=== PATIENT | male | born 1970 | race Caucasian/White ===

== ENCOUNTER 2018-03-22 11:11 | Inpatient (IN) | payer OTHER ==
[~2018-03-22] VITALS: Ht 188 cm; Wt 161.4 kg
[2018-03-22 12:27] LABS: BASOPHILS # (AUTO) 0.01 x10^3/uL (0-0.1); BASOPHILS % (AUTO) 0 % (0-1); EOSINOPHILS # (AUTO) 0.05 x10^3/uL (0-0.4); EOSINOPHILS % (AUTO) 1 % (1-7); LYMPHOCYTES # (AUTO) 1.06 x10^3/uL (1-3.4); LYMPHOCYTES % (AUTO) 13 % (22-44); MD NO; MEAN CORPUSCULAR HGB CONC 31.9 g/dL (33.2-36.2); MEAN CORPUSCULAR VOLUME 90.7 fL (81-97); MEAN PLATELET VOLUME 9.5 fL (7.4-10.4); MONOCYTES # (AUTO) 0.69 x10^3/uL (0.2-0.8); MONOCYTES % (AUTO) 9 % (2-9); NEUTROPHILS # (AUTO) 6.12 x10^3/uL (1.8-6.8); NEUTROPHILS % (AUTO) 77 % (42-75); PLATELET COUNT 210 x10^3/uL (130-400); RED BLOOD COUNT 4.28 x10^6/uL (4.38-5.82); RED CELL DISTRIBUTION WIDTH 17.1 % (9.4-14.8)
[2018-03-22 12:35] LABS: INTERNATIONAL NORMALIZED RATIO 1.03 (0.93-1.1); PROTHROMBIN TIME 10.9 Seconds (9.6-11.5)
[2018-03-22 12:37] LABS: ALBUMIN 3.6 g/dL (3.4-5.0); ANION GAP 7 mmol/L (5-15); CALCIUM 8.3 mg/dL (8.5-10.1); CHLORIDE 98 mmol/L (98-107); CREATININE 1.13 mg/dL (0.7-1.3)
[2018-03-22] MEDS ORDERED: SODIUM CHLORIDE FLUSH 10ML SYR IVF PRN (13:30)
[2018-03-22 14:09] VITALS: BP 172/101
[2018-03-22] MEDS ORDERED: PROMETHAZINE 25 MG/ML, 1ML IM PRN (14:30)
[2018-03-22] MEDS ORDERED: DOCUSATE 100 MG CAPSULE PO PRN (14:30)
[2018-03-22] MEDS ORDERED: ONDANSETRON ODT 4 MG PO PRN (14:30)
[2018-03-22] MEDS ORDERED: ACETAMINOPHEN 325 MG TABLET PO PRN (14:30)
[2018-03-22] MEDS ORDERED: OXYcodone IR 5MG TABLET PO PRN (14:30)
[2018-03-22] MEDS ORDERED: FUROSEMIDE 20 MG/2 ML IV ONE (14:30)
[2018-03-22] MEDS ORDERED: hydrALAzine 20 MG/ML, 1ML IVPush PRN (14:30)
[2018-03-22] MEDS ORDERED: ONDANSETRON 2MG/ML, 2ML IVPush PRN (14:30)
[2018-03-22] MEDS ORDERED: POLYETHYLENE GLYCOL 17 GM PACKET PO PRN (14:30)
[2018-03-22] MEDS ORDERED: LABETALOL 5MG/ML, 20ML IVPush PRN (14:30)
[2018-03-22] MEDS ORDERED: GABAPENTIN 300 MG CAPSULE PO PRN (14:30)
[2018-03-22] MEDS ORDERED: BISACODYL 10 MG SUPP PR PRN (14:30)
[2018-03-22] MEDS ORDERED: morphine SULFATE 10 MG/ML, 1ML IVPush PRN (14:30)
[2018-03-22 14:46] LABS: FREE T4 (FREE THYROXINE) 0.99 ng/dL (0.76-1.46); THYROID STIMULATING HORMONE 1.65 mIU/L (0.358-3.740)
[2018-03-22 14:56] VITALS: BP 178/104
[2018-03-22] MEDS: METOPROLOL SUCCINATE 25 MG TAB.ER.24H PO SCH (15:00)
[2018-03-22 15:29] LABS: HEMOGLOBIN A1C 6.7 % (4.2-6.3)
[2018-03-22 15:53] VITALS: BP 108/77
[2018-03-22 16:13] LABS: TROPONIN I 0.061 ng/mL (0.000-0.045)
[2018-03-22] MEDS ORDERED: CHOL2000 PO (16:38)
[2018-03-22] MEDS ORDERED: VERA180C2 PO (16:38)
[2018-03-22] MEDS ORDERED: SOTA160T PO (16:38)
[2018-03-22] MEDS ORDERED: PANT40TA5 PO (16:38)
[2018-03-22] MEDS ORDERED: DULO30CA2 PO (16:38)
[2018-03-22] MEDS ORDERED: DIGO250T12 PO (16:38)
[2018-03-22] MEDS ORDERED: FURO-92 PO (16:38)
[2018-03-22 18:43] LABS: TROPONIN I 0.046 ng/mL (0.000-0.045)
[2018-03-22 19:44] VITALS: BP 146/83
[2018-03-22] MEDS ORDERED: MAGNESIUM SULFATE PMX 2GM/50ML 50 ML IV ONE (20:00)
[2018-03-23 01:57] VITALS: BP 163/75
[2018-03-23 04:58] LABS: ALBUMIN 3.3 g/dL (3.4-5.0); ANION GAP 7 mmol/L (5-15); CALCIUM 7.9 mg/dL (8.5-10.1); CHLORIDE 98 mmol/L (98-107); CREATININE 1.01 mg/dL (0.7-1.3)
[2018-03-23 05:00] LABS: MEAN CORPUSCULAR HEMOGLOBIN 28.6 pg (27.5-34.5); MEAN CORPUSCULAR HGB CONC 30.8 g/dL (33.2-36.2); MEAN CORPUSCULAR VOLUME 92.8 fL (81-97); MEAN PLATELET VOLUME 9.7 fL (7.4-10.4); PLATELET COUNT 183 x10^3/uL (130-400); RED BLOOD COUNT 4.45 x10^6/uL (4.38-5.82); RED CELL DISTRIBUTION WIDTH 17.2 % (9.4-14.8)
[2018-03-23 05:04] LABS: ALANINE AMINOTRANSFERASE 35 U/L (12-78); ALKALINE PHOSPHATASE 95 U/L (45-117); BILIRUBIN,TOTAL 0.8 mg/dL (0.2-1.0); CHOL/HDL RATIO 4.3; CHOLESTEROL, TOTAL 153 mg/dL (140-239); HDL CHOL % 24 % (26-37); HDL CHOLESTEROL (DIRECT) 36 mg/dL (40-60); LDL CHOLESTEROL,CALCULATED 81 mg/dL (54-169); LDL/HDL RATIO 2.3 (0.5-3.0); TOTAL PROTEIN 6.9 g/dL (6.4-8.2); TRIGLYCERIDES 182 mg/dL (50-200); VLDL CHOLESTEROL 36 mg/dL (0-25)
[2018-03-23 05:46] LABS: BASOPHILS # (AUTO) 0.06 x10^3/uL (0-0.1); BASOPHILS % (AUTO) 1 % (0-1); EOSINOPHILS # (AUTO) 0.08 x10^3/uL (0-0.4); EOSINOPHILS % (AUTO) 1 % (1-7); LYMPHOCYTES # (AUTO) 0.95 x10^3/uL (1-3.4); LYMPHOCYTES % (AUTO) 13 % (22-44); MD SCAN; MONOCYTES # (AUTO) 0.67 x10^3/uL (0.2-0.8); MONOCYTES % (AUTO) 9 % (2-9); NEUTROPHILS # (AUTO) 5.87 x10^3/uL (1.8-6.8); NEUTROPHILS % (AUTO) 77 % (42-75)
[2018-03-23] MEDS: METOPROLOL SUCCINATE 25 MG TAB.ER.24H PO SCH (06:32)
[2018-03-23] MEDS: ASPIRIN 81 MG TABLET EC PO SCH (06:32)
[2018-03-23 06:42] VITALS: BP 133/85
[2018-03-23] MEDS ORDERED: METOPROLOL 1 MG/ML, 5ML ONE (06:47)
[2018-03-23] MEDS ORDERED: METOPROLOL 1 MG/ML, 5ML IVPush ONE (07:00)
[2018-03-23] MEDS ORDERED: IPRATROPIUM 0.5 MG/2.5 ML INHA ONE (07:54)
[2018-03-23] MEDS: IPRATROPIUM 0.5 MG/2.5 ML INHA NPPB SCH ×3 (08:33→19:20)
[2018-03-23] MEDS: VERAPAMIL ER 180MG TABLET.ER PO SCH ×2 (08:59→21:21)
[2018-03-23] MEDS ORDERED: FUROSEMIDE 40 MG/4 ML IV ONE (09:00)
[2018-03-23] MEDS: DULOXETINE 30 MG CAPSULE.DR PO SCH (09:05)
[2018-03-23] MEDS: PANTOPROZOLE 40MG TABLET PO SCH (09:05)
[2018-03-23] MEDS: CHOLECALCIFEROL 1,000 UNIT TABLET PO SCH (09:05)
[2018-03-23] MEDS: DIGOXIN 0.25 MG TABLET PO SCH (09:06)
[2018-03-23] MEDS: FUROSEMIDE 40 MG TABLET PO SCH (09:06)
[2018-03-23] MEDS: SOTALOL 80MG TABLET PO SCH ×2 (09:07→21:21)
[2018-03-23 13:08] VITALS: BP 158/72
[2018-03-23 19:44] VITALS: BP 153/76
[2018-03-24 02:00] VITALS: BP 137/71
[2018-03-24 04:59] LABS: BASOPHILS # (AUTO) 0.02 x10^3/uL (0-0.1); BASOPHILS % (AUTO) 0 % (0-1); EOSINOPHILS # (AUTO) 0.05 x10^3/uL (0-0.4); EOSINOPHILS % (AUTO) 1 % (1-7); LYMPHOCYTES # (AUTO) 1.09 x10^3/uL (1-3.4); LYMPHOCYTES % (AUTO) 15 % (22-44); MD NO; MEAN CORPUSCULAR HEMOGLOBIN 28.7 pg (27.5-34.5); MEAN CORPUSCULAR HGB CONC 31.2 g/dL (33.2-36.2); MEAN CORPUSCULAR VOLUME 92.1 fL (81-97); MEAN PLATELET VOLUME 9.5 fL (7.4-10.4); MONOCYTES % (AUTO) 8 % (2-9); NEUTROPHILS # (AUTO) 5.52 x10^3/uL (1.8-6.8); NEUTROPHILS % (AUTO) 76 % (42-75); PLATELET COUNT 184 x10^3/uL (130-400); RED BLOOD COUNT 4.13 x10^6/uL (4.38-5.82); RED CELL DISTRIBUTION WIDTH 16.8 % (9.4-14.8)
[2018-03-24 05:11] LABS: ANION GAP 2 mmol/L (5-15); CALCIUM 8.3 mg/dL (8.5-10.1); CHLORIDE 98 mmol/L (98-107); CREATININE 0.93 mg/dL (0.7-1.3)
[2018-03-24] MEDS: ASPIRIN 81 MG TABLET EC PO SCH (05:50)
[2018-03-24] MEDS: IPRATROPIUM 0.5 MG/2.5 ML INHA NPPB SCH ×4 (07:00→21:00)
[2018-03-24 07:15] VITALS: BP 134/75
[2018-03-24 09:34] VITALS: BP 162/76
[2018-03-24] MEDS: SOTALOL 80MG TABLET PO SCH ×2 (09:35→19:52)
[2018-03-24] MEDS: DIGOXIN 0.25 MG TABLET PO SCH (09:35)
[2018-03-24] MEDS: DULOXETINE 30 MG CAPSULE.DR PO SCH (09:35)
[2018-03-24] MEDS: CHOLECALCIFEROL 1,000 UNIT TABLET PO SCH (09:36)
[2018-03-24] MEDS: VERAPAMIL ER 180MG TABLET.ER PO SCH ×2 (09:36→19:52)
[2018-03-24] MEDS: PANTOPROZOLE 40MG TABLET PO SCH (09:36)
[2018-03-24] MEDS: FUROSEMIDE 40 MG TABLET PO SCH (09:36)
[2018-03-24] MEDS ORDERED: FUROSEMIDE 40 MG/4 ML IV ONE (10:00)
[2018-03-24 10:35] VITALS: BP 135/77
[2018-03-24] MEDS: POTASSIUM CHLORIDE 20 MEQ TAB.ER.PRT PO SCH (10:36)
[2018-03-24 10:39] LABS: O2 FLOW 5 L/min
[2018-03-24] MEDS: methylPREDNISolone SOD SUCC 125 MG/2 ML IVPush SCH ×2 (11:34→17:40)
[2018-03-24 12:43] VITALS: BP 145/90
[2018-03-24 19:27] VITALS: BP 163/73
[2018-03-25 00:26] VITALS: BP 148/81
[2018-03-25] MEDS: methylPREDNISolone SOD SUCC 125 MG/2 ML IVPush SCH ×5 (00:35→23:47)
[2018-03-25] MEDS: IPRATROPIUM 0.5 MG/2.5 ML INHA NPPB SCH ×4 (03:00→19:07)
[2018-03-25] MEDS: ASPIRIN 81 MG TABLET EC PO SCH (06:26)
[2018-03-25 08:58] VITALS: BP 127/69
[2018-03-25 09:11] LABS: ANION GAP 7 mmol/L (5-15); CALCIUM 9.3 mg/dL (8.5-10.1); CHLORIDE 101 mmol/L (98-107)
[2018-03-25] MEDS: VERAPAMIL ER 180MG TABLET.ER PO SCH ×2 (10:01→20:56)
[2018-03-25] MEDS: POTASSIUM CHLORIDE 20 MEQ TAB.ER.PRT PO SCH (10:01)
[2018-03-25] MEDS: DIGOXIN 0.25 MG TABLET PO SCH (10:01)
[2018-03-25] MEDS: SOTALOL 80MG TABLET PO SCH ×2 (10:02→20:56)
[2018-03-25] MEDS: CHOLECALCIFEROL 1,000 UNIT TABLET PO SCH (10:02)
[2018-03-25] MEDS: PANTOPROZOLE 40MG TABLET PO SCH (10:02)
[2018-03-25] MEDS: DULOXETINE 30 MG CAPSULE.DR PO SCH (10:02)
[2018-03-25] MEDS: FUROSEMIDE 40 MG TABLET PO SCH (10:02)
[2018-03-25 15:58] VITALS: BP 126/68
[2018-03-25 20:03] VITALS: BP 134/70
[2018-03-26 00:59] VITALS: BP 145/76
[2018-03-26] MEDS: IPRATROPIUM 0.5 MG/2.5 ML INHA NPPB SCH ×4 (02:28→20:27)
[2018-03-26] MEDS: methylPREDNISolone SOD SUCC 125 MG/2 ML IVPush SCH ×3 (06:14→18:38)
[2018-03-26] MEDS: ASPIRIN 81 MG TABLET EC PO SCH (06:14)
[2018-03-26 07:16] VITALS: BP 146/72
[2018-03-26] MEDS: POTASSIUM CHLORIDE 20 MEQ TAB.ER.PRT PO SCH (07:47)
[2018-03-26] MEDS: SOTALOL 80MG TABLET PO SCH ×2 (07:47→21:04)
[2018-03-26] MEDS: DULOXETINE 30 MG CAPSULE.DR PO SCH (07:47)
[2018-03-26] MEDS: DIGOXIN 0.25 MG TABLET PO SCH (07:48)
[2018-03-26] MEDS: FUROSEMIDE 40 MG TABLET PO SCH (07:48)
[2018-03-26] MEDS: PANTOPROZOLE 40MG TABLET PO SCH (07:48)
[2018-03-26] MEDS: CHOLECALCIFEROL 1,000 UNIT TABLET PO SCH (07:48)
[2018-03-26] MEDS: VERAPAMIL ER 180MG TABLET.ER PO SCH ×2 (07:48→21:04)
[2018-03-26 08:43] LABS: ANION GAP 10 mmol/L (5-15); CALCIUM 8.8 mg/dL (8.5-10.1); CHLORIDE 104 mmol/L (98-107)
[2018-03-26 12:58] VITALS: BP 128/63
[2018-03-26 19:05] VITALS: BP 154/70
[2018-03-27 02:10] VITALS: BP 145/81
[2018-03-27] MEDS: methylPREDNISolone SOD SUCC 125 MG/2 ML IVPush SCH ×3 (02:11→13:11)
[2018-03-27 02:31] VITALS: BP 144/80
[2018-03-27] MEDS: IPRATROPIUM 0.5 MG/2.5 ML INHA NPPB SCH ×3 (03:00→14:30)
[2018-03-27] MEDS: ASPIRIN 81 MG TABLET EC PO SCH (06:14)
[2018-03-27 06:16] LABS: ANION GAP 10 mmol/L (5-15); CALCIUM 8.8 mg/dL (8.5-10.1); CHLORIDE 105 mmol/L (98-107)
[2018-03-27 06:18] LABS: CREATININE 1.21 mg/dL (0.7-1.3)
[2018-03-27 07:05] VITALS: BP 139/67
[2018-03-27] MEDS: DIGOXIN 0.25 MG TABLET PO SCH (08:04)
[2018-03-27] MEDS: DULOXETINE 30 MG CAPSULE.DR PO SCH (08:05)
[2018-03-27] MEDS: CHOLECALCIFEROL 1,000 UNIT TABLET PO SCH (08:05)
[2018-03-27] MEDS: POTASSIUM CHLORIDE 20 MEQ TAB.ER.PRT PO SCH (08:05)
[2018-03-27] MEDS: VERAPAMIL ER 180MG TABLET.ER PO SCH (08:05)
[2018-03-27] MEDS: PANTOPROZOLE 40MG TABLET PO SCH (08:05)
[2018-03-27] MEDS: FUROSEMIDE 40 MG TABLET PO SCH (08:06)
[2018-03-27] MEDS: SOTALOL 80MG TABLET PO SCH (08:06)
[2018-03-27] MEDS ORDERED: ASPI325T17 PO (11:34)
[2018-03-27] MEDS ORDERED: TIOT18CA INH (11:34)
[2018-03-27] MEDS ORDERED: PRED5TAB PO (11:34)
[2018-03-27 13:30] VITALS: BP 127/67
[2018-03-28] MEDS ORDERED: ASPIRIN 325 MG TABLET EC PO SCH (06:00)
== END 2018-03-27 15:13 | disposition home or self-care (01) | DRG 280 ==
LOC: ED 12:41 → EDIP 14:04 → 5SO 14:08 → 4WST 03-27 02:28
PROVIDERS: ADMIT Hospitalist; ATTEND Hospitalist
PROC: 5A09357 Assistance with Respiratory Ventilation, Less than 24 Consecutive Hours, Continuous Positive Airway Pressure (ICD-10-PCS; 2018-03-25)
PROC: 5A09357 Assistance with Respiratory Ventilation, Less than 24 Consecutive Hours, Continuous Positive Airway Pressure (ICD-10-PCS; principal; 2018-03-26)
DX: I21.9 Acute myocardial infarction, unspecified (principal); J96.21 Acute and chronic respiratory failure with hypoxia; J44.1 Chronic obstructive pulmonary disease with (acute) exacerbation; I50.30 Unspecified diastolic (congestive) heart failure; E87.4 Mixed disorder of acid-base balance; E46 Unspecified protein-calorie malnutrition; D68.69 Other thrombophilia; Z68.42 Body mass index [BMI] 45.0-49.9, adult; Z77.098 Contact with and (suspected) exposure to other hazardous, chiefly nonmedicinal, chemicals; I48.0 Paroxysmal atrial fibrillation; I11.0 Hypertensive heart disease with heart failure; I34.0 Nonrheumatic mitral (valve) insufficiency; E66.01 Morbid (severe) obesity due to excess calories; I48.2 Chronic atrial fibrillation; D64.9 Anemia, unspecified; Z88.8 Allergy status to other drugs, medicaments and biological substances; Z99.81 Dependence on supplemental oxygen; Z79.82 Long term (current) use of aspirin; Z87.891 Personal history of nicotine dependence
CPT/HCPCS: 36415; 36600; 99285; J7644; 71045; 80048; 80053; 80061; 82040; 82803; 83036; 83735; 84439; 84443; 84484; 85025; 85610; 85730; 93005; 93306; 94640; 94660; G0378; J1940; J2930; J3475; J7512

== ENCOUNTER 2018-04-25 10:44 | Inpatient (IN) | payer OTHER ==
[~2018-04-25] VITALS: Ht 188 cm; Wt 148.0 kg
[~2018-04-25 10:44] MED LIST: ASPI325T17 PO; CHOL2000 PO; DIGO250T12 PO; DULO30CA2 PO; FURO-92 PO; PANT40TA5 PO; PRED5TAB PO; SOTA160T PO; TIOT18CA INH; VERA180C2 PO
--- NOTE | 2018-04-25 11:15 | NUR ---
BIB [facility] from [facility]. C/O left sided 2/10 CP radiating to left arm. C/O right inguinal pain, redness, and swelling, very tender on palpation. Patient mildly hypotensive and very diaphoretic. On 4L NC, which is his baseline. Guards at bedside. Placed on NIBP, pulse ox and youth nutritional monitor. Will continue to monitor.
[2018-04-25] MEDS ORDERED: UMEC62.5 INH (11:24)
[2018-04-25] MEDS ORDERED: SODIUM CHLORIDE FLUSH 10ML SYR IVF ONE (11:30)
[2018-04-25] MEDS ORDERED: ONDANSETRON 2MG/ML, 2ML IVPush ONE (11:30)
[2018-04-25] MEDS ORDERED: SODIUM CHLORIDE 0.9% 1,000ML IVBOLUS ONE ×2 (11:30→14:00)
[2018-04-25] MEDS ORDERED: ONDANSETRON 2MG/ML, 2ML ONE (11:31)
[2018-04-25] MEDS ORDERED: HYDROmorphone 2 MG/ML, 1ML ONE ×2 (11:31→14:56)
[2018-04-25] MEDS: HYDROmorphone 1 MG/ML, 1ML IVPush PRN ×2 (11:35→14:57)
[2018-04-25] MEDS ORDERED: VANCOMYCIN PER PHARMACY MC ONE (12:00)
[2018-04-25] MEDS ORDERED: PIPERACILLIN/TAZO/PMX 3.375GM 50 ML IVPB ONE (12:00)
[2018-04-25] MEDS ORDERED: VANCOMYCIN 2,200 MG in SODIUM CHLORIDE 0.9% 500 ML IV ONE (12:00)
[2018-04-25 12:08] LABS: INTERNATIONAL NORMALIZED RATIO 1.23 (0.93-1.1); PROTHROMBIN TIME 12.9 Seconds (9.6-11.5)
[2018-04-25 12:09] LABS: ALBUMIN 2.4 g/dL (3.4-5.0); ANION GAP 11 mmol/L (5-15); CHLORIDE 91 mmol/L (98-107)
[2018-04-25] MEDS ORDERED: PIPERACILLIN/TAZO/PMX 3.375GM 50 ML ONE (12:13)
[2018-04-25 12:15] LABS: ALANINE AMINOTRANSFERASE 23 U/L (12-78); ALKALINE PHOSPHATASE 94 U/L (45-117); CREATININE 1.13 mg/dL (0.7-1.3); TOTAL PROTEIN 6.5 g/dL (6.4-8.2)
[2018-04-25] MEDS ORDERED: NS + 40MEQ KCL 1,000 ML IV ONE (12:15)
--- NOTE | 2018-04-25 12:19 | NUR ---
Noah murrell. No other needs.
[2018-04-25 12:24] LABS: MEAN CORPUSCULAR HEMOGLOBIN 30.3 pg (27.5-34.5); MEAN CORPUSCULAR HGB CONC 33.8 g/dL (33.2-36.2); MEAN CORPUSCULAR VOLUME 89.5 fL (81-97); PLATELET COUNT 145 x10^3/uL (130-400); RED BLOOD COUNT 4.29 x10^6/uL (4.38-5.82); RED CELL DISTRIBUTION WIDTH 15.3 % (9.4-14.8)
[2018-04-25 12:37] LABS: TROPONIN I < 0.015 ng/mL (0.000-0.045)
[2018-04-25 13:07] LABS: MD YES
[2018-04-25 13:08] LABS: BAND#(MANUAL) 1.36 x10^3/uL; BANDS%(MANUAL) 9 % (0-7); LYMPH#(MANUAL) 1.21 x10^3/uL (1-3.4); LYMPHS% (MANUAL) 8 % (22-44); MONOS#(MANUAL) 1.06 x10^3/uL (0.3-2.7); MONOS% (MANUAL) 7 % (2-9); SEG#(MANUAL) 11.48 x10^3/uL (1.8-6.8); SEGS% (MANUAL) 76 % (42-75)
[2018-04-25 13:09] LABS: <PLATELET ESTIMATE> ADEQUATE; POLYCHROMASIA 1+
[2018-04-25 13:10] LABS: LARGE PLATELETS 1+
[2018-04-25] MEDS ORDERED: OMNIPAQUE 350 MG/ML, 100ML BOTTLE ONE (13:23)
--- NOTE | 2018-04-25 13:24 | NUR ---
Patient becoming increasingly hypotensive, diaphoretic, and pale. Fluids run wide open. Lowered HOB. aware. Ziyad held for now.
--- NOTE | 2018-04-25 13:44 | NUR ---
REPORT FROM RN XAVIER, PT CARE ASSUMED AT THIS TIME. PT MOVED TO TR03 FOR CVL PLACEMENT. MD TRIPLETT DISCUSSED CVL PLACEMENT INCLUDING RISK & BEENFIT W/ PT WHO STATES COMPREHENSION.
--- NOTE | 2018-04-25 13:44 | NUR ---
Report to KELSEA Benjamin.
[2018-04-25] MEDS ORDERED: NOREPINEPHRINE 4 MG in SODIUM CHLORIDE 0.9% 246 ML IV PRN ×2 (14:00→15:00)
--- NOTE | 2018-04-25 14:30 | NUR ---
CVL PLACED W/O COMPLICATION, ADHERING TO HOSPITAL PROTOCOL & STERILE TECHNIQUE. MD TAYLOR HAS BEEN AT BEDSIDE TO REVIEW H&P W/ PT, PT IS SCHEDULED FOR SURGICAL CLEANOUT OF GROIN INFECTION.
[2018-04-25] MEDS ORDERED: CLINDAMYCIN PMX 900MG/50ML 0 ML ONE (14:40)
[2018-04-25] MEDS ORDERED: POLYETHYLENE GLYCOL 17 GM PACKET PO PRN (15:00)
[2018-04-25] MEDS ORDERED: VASOPRESSIN 100 UNIT in SODIUM CHLORIDE 0.9% 495 ML IV PRN (15:00)
[2018-04-25] MEDS ORDERED: BISACODYL 10 MG SUPP PR PRN (15:00)
[2018-04-25] MEDS ORDERED: VANCOMYCIN PER PHARMACY MC PRN (15:00)
[2018-04-25] MEDS ORDERED: ONDANSETRON 2MG/ML, 2ML IVPush PRN (15:00)
[2018-04-25] MEDS ORDERED: DOCUSATE 100 MG CAPSULE PO PRN (15:00)
[2018-04-25] MEDS ORDERED: MAGNESIUM SULFATE PMX 2GM/50ML 50 ML IV ONE (15:00)
[2018-04-25] MEDS ORDERED: CLINDAMYCIN PMX 900MG/50ML 50 ML IV ONE (15:00)
[2018-04-25] MEDS ORDERED: MAGNESIUM SULFATE 3 GM in SODIUM CHLORIDE 0.9% 100 ML IV ONE (15:30)
[2018-04-25] MEDS ORDERED: LIDOCAINE 2%,20 ML JEL.PF.APP MM ONE (15:33)
--- NOTE | 2018-04-25 15:36 | NUR ---
REPORT CALLED JOVON TORRE IN CCU, MOBLEY CATH PLACED BY MD TAYLOR
[2018-04-25 15:39] LABS: HCT (SEDRATE) 38.4 % (39.2-51.8)
--- NOTE | 2018-04-25 16:02 | NUR ---
REPORT GIVEN TO YELITZA ENAMORADO PRIOR TO TRANSPORT TO FLOOR, PT TRANSPORTED W/ ALL BELONGINGS & IN ACCOMPANIED BY GUARDS.
[2018-04-25] MEDS ORDERED: POTASSIUM PHOSPHATE 44 MEQ in SODIUM CHLORIDE 0.9% 500 ML IV ONE (17:00)
[2018-04-25] MEDS ORDERED: MAGNESIUM SULFATE PMX 4GM/100M 100 ML IV ONE (17:00)
[2018-04-25] MEDS ORDERED: PHARMACOKINETIC CONSULTATION MC ONE (17:00)
[2018-04-25] MEDS ORDERED: PHARMACOKINETIC MONITORING MC PRN (17:00)
[2018-04-25] MEDS ORDERED: POTASSIUM CHLORIDE 40 MEQ in SODIUM CHLORIDE 0.9% 100 ML IV ONE (17:30)
[2018-04-25] MEDS: MEROPENEM 1 GM in SODIUM CHLORIDE 0.9% 100 ML IV SCH (17:56)
[2018-04-25 18:51] LABS: CULTURE INDICATED? ORDERED BY PHYSICIAN; MICROSCOPIC INDICATED
[2018-04-25 18:58] LABS: AMPHETAMINE SCREEN, URINE Negative (Negative); BARBITURATE SCREEN, URINE Negative (Negative); BENZODIAZEPINE SCREEN, URINE Negative (Negative); CANNABINOID SCREEN, URINE Negative (Negative); COCAINE SCREEN, URINE Negative (Negative); METHADONE SCREEN, URINE Negative (Negative); OPIATE SCREEN, URINE Positive (Negative)
[2018-04-25] MEDS: CLINDAMYCIN PMX 900MG/50ML 50 ML IV SCH (19:17)
[2018-04-25] MEDS: FENTANYL PF 100 MCG/2ML IVPush PRN ×2 (20:09→23:03)
[2018-04-25] MEDS: SODIUM CHLORIDE 0.9% 1,000 ML IV SCH (20:10)
[2018-04-25] MEDS ORDERED: FONDAPARINUX 2.5 MG/0.5 ML SQ SCH (21:00)
[2018-04-26] MEDS: MEROPENEM 1 GM in SODIUM CHLORIDE 0.9% 100 ML IV SCH ×3 (01:58→16:57)
[2018-04-26] MEDS: FENTANYL PF 100 MCG/2ML IVPush PRN ×10 (02:02→22:00)
[2018-04-26] MEDS: CLINDAMYCIN PMX 900MG/50ML 50 ML IV SCH ×3 (03:01→19:19)
[2018-04-26 03:36] LABS: MEAN CORPUSCULAR HEMOGLOBIN 29.9 pg (27.5-34.5); MEAN CORPUSCULAR HGB CONC 33.1 g/dL (33.2-36.2); MEAN CORPUSCULAR VOLUME 90.4 fL (81-97); MEAN PLATELET VOLUME 10.6 fL (7.4-10.4); PLATELET COUNT 134 x10^3/uL (130-400); RED BLOOD COUNT 3.55 x10^6/uL (4.38-5.82); RED CELL DISTRIBUTION WIDTH 15.6 % (9.4-14.8)
[2018-04-26 03:50] LABS: ALANINE AMINOTRANSFERASE 18 U/L (12-78); ALBUMIN 1.8 g/dL (3.4-5.0); ANION GAP 8 mmol/L (5-15); CALCIUM 6.6 mg/dL (8.5-10.1); CHLORIDE 101 mmol/L (98-107); CREATININE 0.85 mg/dL (0.7-1.3)
[2018-04-26 03:52] LABS: ALKALINE PHOSPHATASE 84 U/L (45-117); BILIRUBIN,TOTAL 0.8 mg/dL (0.2-1.0); TOTAL PROTEIN 5.3 g/dL (6.4-8.2)
[2018-04-26 04:00] LABS: HEMOGLOBIN A1C 6.2 % (4.2-6.3)
[2018-04-26] MEDS: SODIUM CHLORIDE 0.9% 1,000 ML IV SCH ×3 (04:05→22:00)
[2018-04-26 04:09] VITALS: BP 121/60
[2018-04-26 04:23] LABS: BASOPHILS # (AUTO) 0.01 x10^3/uL (0-0.1); BASOPHILS % (AUTO) 0 % (0-1); EOSINOPHILS # (AUTO) 0.04 x10^3/uL (0-0.4); EOSINOPHILS % (AUTO) 0 % (1-7); LYMPHOCYTES # (AUTO) 0.51 x10^3/uL (1-3.4); LYMPHOCYTES % (AUTO) 5 % (22-44); MD SCAN; MONOCYTES % (AUTO) 7 % (2-9); NEUTROPHILS # (AUTO) 10.01 x10^3/uL (1.8-6.8); NEUTROPHILS % (AUTO) 88 % (42-75)
[2018-04-26] MEDS: PANTOPRAZOLE 40 MG IV IVPush SCH (07:26)
[2018-04-26] MEDS: VANCOMYCIN 2,200 MG in SODIUM CHLORIDE 0.9% 500 ML IV SCH (07:27)
[2018-04-26] MEDS ORDERED: POTASSIUM CHLORIDE 20 MEQ TAB.ER.PRT PO SCH (08:00)
[2018-04-26] MEDS ORDERED: MAGNESIUM SULFATE PMX 4GM/100M 100 ML IV ONE (08:00)
[2018-04-26] MEDS ORDERED: POTASSIUM CHLORIDE 40 MEQ in SODIUM CHLORIDE 0.9% 100 ML IV ONE (09:00)
[2018-04-26] MEDS ORDERED: FENTANYL PF 100 MCG/2ML ONE ×3 (13:39→15:22)
[2018-04-26] MEDS ORDERED: SUCCINYLCHOLINE 20 MG/ML, 10ML ONE (14:01)
[2018-04-26] MEDS ORDERED: DEXAMETHASONE 4 MG/ML, 1ML ONE (14:01)
[2018-04-26] MEDS ORDERED: ROCURONIUM 10MG/ML,5ML ONE (14:01)
[2018-04-26] MEDS ORDERED: ONDANSETRON 2MG/ML, 2ML ONE (14:01)
[2018-04-26] MEDS ORDERED: PROPOFOL 10 MG/ML, 20ML ONE (14:01)
[2018-04-26] MEDS ORDERED: OXYcodone 5 MG/5 ML ORAL.SOL UDC PO PRN (15:00)
[2018-04-26] MEDS ORDERED: hydrALAzine 20 MG/ML, 1ML IV PRN (15:00)
[2018-04-26] MEDS ORDERED: METOPROLOL 1 MG/ML, 5ML IV PRN (15:00)
[2018-04-26] MEDS ORDERED: DIPHENHYDRAMINE 50 MG/ML, 1ML IVPush PRN (15:00)
[2018-04-26] MEDS ORDERED: LABETALOL 5MG/ML, 20ML IV PRN (15:00)
[2018-04-26] MEDS ORDERED: ALBUTEROL/IPRATROPIUM 2.5MG/0.5MG, 3 ML NPPB PRN (15:00)
[2018-04-26] MEDS ORDERED: PROCHLORPERAZINE 5 MG/ML, 2ML IV PRN ×2 (15:00)
[2018-04-26] MEDS ORDERED: PROMETHAZINE 25 MG/ML, 1ML IV PRN (15:00)
[2018-04-26] MEDS ORDERED: OXYcodone 5 MG/5 ML ORAL.SOL UDC ONE (15:22)
[2018-04-26] MEDS: FENTANYL PF 100 MCG/2ML IV PRN ×2 (15:25→15:30)
[2018-04-26] MEDS: HYDROmorphone 2 MG/ML, 1ML IVPush PRN ×4 (15:28→15:50)
[2018-04-26] MEDS ORDERED: HYDROmorphone 2 MG/ML, 1ML ONE (15:29)
[2018-04-26] MEDS ORDERED: FONDAPARINUX 2.5 MG/0.5 ML SQ SCH (21:00)
[2018-04-26] MEDS: ENOXAPARIN 40 MG/0.4 ML SQ SCH ×2 (21:00→21:58)
[2018-04-27] MEDS: FENTANYL PF 100 MCG/2ML IVPush PRN ×5 (00:43→21:26)
[2018-04-27] MEDS: MEROPENEM 1 GM in SODIUM CHLORIDE 0.9% 100 ML IV SCH ×3 (00:44→17:40)
[2018-04-27] MEDS: VANCOMYCIN 2,200 MG in SODIUM CHLORIDE 0.9% 500 ML IV SCH ×3 (01:49→21:45)
[2018-04-27 04:00] VITALS: BP 109/63
[2018-04-27] MEDS: CLINDAMYCIN PMX 900MG/50ML 50 ML IV SCH ×3 (04:37→20:31)
[2018-04-27 06:30] LABS: BASOPHILS % (AUTO) 0 % (0-1); EOSINOPHILS % (AUTO) 0 % (1-7); LYMPHOCYTES % (AUTO) 3 % (22-44); MD NO; MEAN CORPUSCULAR HEMOGLOBIN 29.6 pg (27.5-34.5); MEAN CORPUSCULAR HGB CONC 32.1 g/dL (33.2-36.2); MEAN CORPUSCULAR VOLUME 92.1 fL (81-97); MEAN PLATELET VOLUME 11.6 fL (7.4-10.4); MONOCYTES # (AUTO) 0.54 x10^3/uL (0.2-0.8); MONOCYTES % (AUTO) 6 % (2-9); NEUTROPHILS # (AUTO) 8.94 x10^3/uL (1.8-6.8); NEUTROPHILS % (AUTO) 91 % (42-75); PLATELET COUNT 134 x10^3/uL (130-400); RED BLOOD COUNT 3.31 x10^6/uL (4.38-5.82); RED CELL DISTRIBUTION WIDTH 15.8 % (9.4-14.8)
[2018-04-27] MEDS: PANTOPRAZOLE 40 MG IV IVPush SCH (08:49)
[2018-04-27] MEDS: LACTOBACILLUS CHEW TABLET PO SCH ×3 (08:49→20:30)
[2018-04-27] MEDS: SODIUM CHLORIDE 0.9% 1,000 ML IV SCH ×2 (11:22→13:50)
[2018-04-27] MEDS: NYSTATIN CRM 15GM TP SCH ×3 (11:27→21:45)
[2018-04-27 19:50] VITALS: BP 136/78
[2018-04-27] MEDS: ENOXAPARIN 40 MG/0.4 ML SQ SCH (20:31)
[2018-04-27] MEDS: ACETAMINOPHEN 325 MG TABLET PO PRN (21:26)
[2018-04-27] MEDS: OXYcodone/APAP 5/325MG TABLET PO PRN (21:26)
[2018-04-27 23:04] LABS: CLOSTRIDIUM DIFFICILE ANTIGEN NEGATIVE; CLOSTRIDIUM DIFFICILE TOXIN NEGATIVE (Negative)
[2018-04-28] MEDS: SODIUM CHLORIDE 0.9% 1,000 ML IV SCH ×4 (00:24→22:24)
[2018-04-28] MEDS: MEROPENEM 1 GM in SODIUM CHLORIDE 0.9% 100 ML IV SCH ×3 (01:47→19:44)
[2018-04-28] MEDS: ACETAMINOPHEN 325 MG TABLET PO PRN ×2 (01:57→22:20)
[2018-04-28] MEDS: OXYcodone/APAP 5/325MG TABLET PO PRN ×4 (01:57→22:20)
[2018-04-28 02:05] VITALS: BP 133/77
[2018-04-28] MEDS: CLINDAMYCIN PMX 900MG/50ML 50 ML IV SCH ×3 (04:37→20:45)
[2018-04-28 05:26] LABS: BASOPHILS # (AUTO) 0.01 x10^3/uL (0-0.1); BASOPHILS % (AUTO) 0 % (0-1); EOSINOPHILS # (AUTO) 0.03 x10^3/uL (0-0.4); EOSINOPHILS % (AUTO) 0 % (1-7); LYMPHOCYTES # (AUTO) 0.58 x10^3/uL (1-3.4); LYMPHOCYTES % (AUTO) 8 % (22-44); MD NO; MEAN CORPUSCULAR HEMOGLOBIN 30.4 pg (27.5-34.5); MEAN CORPUSCULAR HGB CONC 33.3 g/dL (33.2-36.2); MEAN CORPUSCULAR VOLUME 91.1 fL (81-97); MEAN PLATELET VOLUME 10.8 fL (7.4-10.4); MONOCYTES # (AUTO) 0.54 x10^3/uL (0.2-0.8); MONOCYTES % (AUTO) 7 % (2-9); NEUTROPHILS # (AUTO) 6.14 x10^3/uL (1.8-6.8); NEUTROPHILS % (AUTO) 84 % (42-75); PLATELET COUNT 164 x10^3/uL (130-400); RED BLOOD COUNT 3.16 x10^6/uL (4.38-5.82); RED CELL DISTRIBUTION WIDTH 15.9 % (9.4-14.8)
[2018-04-28 05:41] LABS: ANION GAP 4 mmol/L (5-15); CALCIUM 7.8 mg/dL (8.5-10.1); CHLORIDE 109 mmol/L (98-107); CREATININE 0.69 mg/dL (0.7-1.3)
[2018-04-28 07:00] VITALS: BP 139/83
[2018-04-28] MEDS ORDERED: POTASSIUM CHLORIDE 60 MEQ in SODIUM CHLORIDE 0.9% 1,000 ML IV ONE (07:30)
[2018-04-28] MEDS: PANTOPRAZOLE 40 MG IV IVPush SCH (09:36)
[2018-04-28] MEDS: NYSTATIN CRM 15GM TP SCH ×3 (09:36→20:50)
[2018-04-28] MEDS: VANCOMYCIN 2,200 MG in SODIUM CHLORIDE 0.9% 500 ML IV SCH ×2 (09:36→22:18)
[2018-04-28] MEDS: LACTOBACILLUS CHEW TABLET PO SCH ×3 (09:36→20:45)
[2018-04-28 12:08] VITALS: BP 150/92
[2018-04-28 19:00] VITALS: BP 148/90
[2018-04-28] MEDS: ENOXAPARIN 40 MG/0.4 ML SQ SCH (20:45)
[2018-04-29 03:17] VITALS: BP 138/78
[2018-04-29] MEDS: MEROPENEM 1 GM in SODIUM CHLORIDE 0.9% 100 ML IV SCH ×2 (04:23→17:27)
[2018-04-29] MEDS: ACETAMINOPHEN 325 MG TABLET PO PRN ×3 (05:07→13:12)
[2018-04-29] MEDS: CLINDAMYCIN PMX 900MG/50ML 50 ML IV SCH ×2 (05:07→18:21)
[2018-04-29] MEDS: OXYcodone/APAP 5/325MG TABLET PO PRN ×4 (05:07→20:54)
[2018-04-29 06:07] LABS: MEAN CORPUSCULAR HEMOGLOBIN 29.4 pg (27.5-34.5); MEAN CORPUSCULAR HGB CONC 32.2 g/dL (33.2-36.2); MEAN CORPUSCULAR VOLUME 91.2 fL (81-97); MEAN PLATELET VOLUME 9.4 fL (7.4-10.4); PLATELET COUNT 209 x10^3/uL (130-400); RED BLOOD COUNT 3.35 x10^6/uL (4.38-5.82); RED CELL DISTRIBUTION WIDTH 16.3 % (9.4-14.8)
[2018-04-29 06:16] LABS: ALBUMIN 1.7 g/dL (3.4-5.0); ANION GAP 6 mmol/L (5-15); CALCIUM 8.3 mg/dL (8.5-10.1); CHLORIDE 107 mmol/L (98-107)
[2018-04-29 06:20] LABS: ALANINE AMINOTRANSFERASE 23 U/L (12-78); ALKALINE PHOSPHATASE 78 U/L (45-117); BILIRUBIN,TOTAL 0.3 mg/dL (0.2-1.0); TOTAL PROTEIN 5.1 g/dL (6.4-8.2)
[2018-04-29 06:39] LABS: MD YES
[2018-04-29 06:53] LABS: BAND#(MANUAL) 0.39 x10^3/uL; BANDS%(MANUAL) 6 % (0-7); LYMPH#(MANUAL) 0.91 x10^3/uL (1-3.4); LYMPHS% (MANUAL) 14 % (22-44); MONOS% (MANUAL) 3 % (2-9); SEG#(MANUAL) 5.01 x10^3/uL (1.8-6.8); SEGS% (MANUAL) 77 % (42-75)
[2018-04-29 06:54] LABS: <PLATELET ESTIMATE> ADEQUATE; <PLT MORPHOLOGY> NORMAL PLT MORPH; ANISOCYTOSIS 1+
[2018-04-29] MEDS ORDERED: POTASSIUM CHLORIDE 40 MEQ in SODIUM CHLORIDE 0.9% 500 ML IV ONE (07:00)
[2018-04-29 07:21] VITALS: BP 155/83
[2018-04-29] MEDS: VANCOMYCIN 2,200 MG in SODIUM CHLORIDE 0.9% 500 ML IV SCH ×2 (08:55→20:55)
[2018-04-29] MEDS: LACTOBACILLUS CHEW TABLET PO SCH ×3 (08:55→20:54)
[2018-04-29] MEDS: NYSTATIN CRM 15GM TP SCH ×3 (08:55→20:57)
[2018-04-29] MEDS: PANTOPRAZOLE 40 MG IV IVPush SCH (08:55)
[2018-04-29] MEDS: SODIUM CHLORIDE 0.9% 1,000 ML IV SCH (08:57)
[2018-04-29] MEDS ORDERED: MAGNESIUM SULFATE 1 GM in SODIUM CHLORIDE 0.9% 50 ML IV ONE (11:00)
[2018-04-29 13:07] VITALS: BP 163/90
[2018-04-29] MEDS ORDERED: FUROSEMIDE 40 MG TABLET ONE (13:10)
[2018-04-29] MEDS: FUROSEMIDE 40 MG TABLET PO SCH (13:11)
[2018-04-29 19:47] VITALS: BP 148/88
[2018-04-29] MEDS: ENOXAPARIN 40 MG/0.4 ML SQ SCH (20:55)
[2018-04-30 01:07] VITALS: BP 152/99
[2018-04-30] MEDS: MEROPENEM 1 GM in SODIUM CHLORIDE 0.9% 100 ML IV SCH ×3 (01:34→17:59)
[2018-04-30] MEDS: OXYcodone/APAP 5/325MG TABLET PO PRN ×4 (01:38→22:44)
[2018-04-30] MEDS: CLINDAMYCIN PMX 900MG/50ML 50 ML IV SCH ×3 (03:10→22:35)
[2018-04-30 04:50] LABS: BASOPHILS # (AUTO) 0.01 x10^3/uL (0-0.1); BASOPHILS % (AUTO) 0 % (0-1); EOSINOPHILS # (AUTO) 0.03 x10^3/uL (0-0.4); EOSINOPHILS % (AUTO) 0 % (1-7); LYMPHOCYTES # (AUTO) 0.89 x10^3/uL (1-3.4); LYMPHOCYTES % (AUTO) 12 % (22-44); MD NO; MEAN CORPUSCULAR HEMOGLOBIN 29.6 pg (27.5-34.5); MEAN CORPUSCULAR HGB CONC 32.5 g/dL (33.2-36.2); MEAN CORPUSCULAR VOLUME 91.2 fL (81-97); MEAN PLATELET VOLUME 9.1 fL (7.4-10.4); MONOCYTES # (AUTO) 0.34 x10^3/uL (0.2-0.8); MONOCYTES % (AUTO) 5 % (2-9); NEUTROPHILS # (AUTO) 5.89 x10^3/uL (1.8-6.8); NEUTROPHILS % (AUTO) 82 % (42-75); PLATELET COUNT 250 x10^3/uL (130-400); RED BLOOD COUNT 3.36 x10^6/uL (4.38-5.82); RED CELL DISTRIBUTION WIDTH 15.8 % (9.4-14.8)
[2018-04-30 05:01] LABS: ALBUMIN 1.6 g/dL (3.4-5.0); ANION GAP 6 mmol/L (5-15); CALCIUM 8.2 mg/dL (8.5-10.1); CHLORIDE 108 mmol/L (98-107)
[2018-04-30 05:10] LABS: CREATININE 0.62 mg/dL (0.7-1.3)
[2018-04-30] MEDS: ASPIRIN 325 MG TABLET PO SCH (06:06)
[2018-04-30] MEDS ORDERED: MAGNESIUM SULFATE 3 GM in SODIUM CHLORIDE 0.9% 100 ML IV ONE (07:00)
[2018-04-30 07:50] VITALS: BP 161/93
[2018-04-30] MEDS: SODIUM CHLORIDE 0.9% 1,000 ML IV SCH (07:58)
[2018-04-30] MEDS: PANTOPRAZOLE 40 MG IV IVPush SCH (07:58)
[2018-04-30] MEDS: LACTOBACILLUS CHEW TABLET PO SCH ×3 (08:39→22:34)
[2018-04-30] MEDS: POTASSIUM CHLORIDE 20 MEQ TAB.ER.PRT PO SCH ×2 (08:40→22:34)
[2018-04-30] MEDS ORDERED: FUROSEMIDE 20 MG/2 ML IV ONE (09:00)
[2018-04-30] MEDS: NYSTATIN CRM 15GM TP SCH ×3 (09:00→22:36)
[2018-04-30] MEDS: VANCOMYCIN 2,200 MG in SODIUM CHLORIDE 0.9% 500 ML IV SCH (11:33)
[2018-04-30 12:47] VITALS: BP 150/96
[2018-04-30 20:36] VITALS: BP 151/93
[2018-04-30] MEDS: ENOXAPARIN 40 MG/0.4 ML SQ SCH (22:35)
[2018-04-30] MEDS: ACETAMINOPHEN 325 MG TABLET PO PRN (22:44)
[2018-05-01] MEDS: VANCOMYCIN 2,200 MG in SODIUM CHLORIDE 0.9% 500 ML IV SCH ×2 (00:08→11:00)
[2018-05-01] MEDS: MEROPENEM 1 GM in SODIUM CHLORIDE 0.9% 100 ML IV SCH ×3 (02:01→12:30)
[2018-05-01 03:23] VITALS: BP 166/85
[2018-05-01 04:55] LABS: BASOPHILS # (AUTO) 0.01 x10^3/uL (0-0.1); BASOPHILS % (AUTO) 0 % (0-1); EOSINOPHILS # (AUTO) 0.04 x10^3/uL (0-0.4); EOSINOPHILS % (AUTO) 1 % (1-7); LYMPHOCYTES # (AUTO) 0.82 x10^3/uL (1-3.4); LYMPHOCYTES % (AUTO) 11 % (22-44); MD NO; MEAN CORPUSCULAR HEMOGLOBIN 29.8 pg (27.5-34.5); MEAN CORPUSCULAR HGB CONC 32.9 g/dL (33.2-36.2); MEAN CORPUSCULAR VOLUME 90.6 fL (81-97); MEAN PLATELET VOLUME 8.9 fL (7.4-10.4); MONOCYTES # (AUTO) 0.37 x10^3/uL (0.2-0.8); MONOCYTES % (AUTO) 5 % (2-9); NEUTROPHILS # (AUTO) 6.42 x10^3/uL (1.8-6.8); NEUTROPHILS % (AUTO) 84 % (42-75); PLATELET COUNT 264 x10^3/uL (130-400); RED CELL DISTRIBUTION WIDTH 16.2 % (9.4-14.8)
[2018-05-01 05:00] LABS: ALBUMIN 1.6 g/dL (3.4-5.0); ANION GAP 4 mmol/L (5-15); CHLORIDE 107 mmol/L (98-107)
[2018-05-01 05:04] LABS: ALANINE AMINOTRANSFERASE 25 U/L (12-78); ALKALINE PHOSPHATASE 78 U/L (45-117); BILIRUBIN,TOTAL 0.3 mg/dL (0.2-1.0); CREATININE 0.58 mg/dL (0.7-1.3); TOTAL PROTEIN 5.2 g/dL (6.4-8.2)
[2018-05-01] MEDS: PANTOPROZOLE 40MG TABLET PO SCH (06:41)
[2018-05-01] MEDS: CLINDAMYCIN PMX 900MG/50ML 50 ML IV SCH (06:41)
[2018-05-01] MEDS: ASPIRIN 325 MG TABLET PO SCH (06:41)
[2018-05-01 07:42] VITALS: BP 151/84
[2018-05-01] MEDS: POTASSIUM CHLORIDE 20 MEQ TAB.ER.PRT PO SCH ×2 (08:55→21:08)
[2018-05-01] MEDS: OXYcodone/APAP 5/325MG TABLET PO PRN ×3 (08:55→21:08)
[2018-05-01] MEDS: LACTOBACILLUS CHEW TABLET PO SCH ×3 (08:55→21:08)
[2018-05-01] MEDS: FUROSEMIDE 40 MG TABLET PO SCH (08:56)
[2018-05-01] MEDS: NYSTATIN CRM 15GM TP SCH ×2 (08:56→16:09)
[2018-05-01 12:20] VITALS: BP 143/89
[2018-05-01] MEDS: AMPICILLIN/SULBACTAM 3 GM in SODIUM CHLORIDE 0.9% 100 ML IV SCH ×2 (13:24→21:07)
[2018-05-01 19:06] VITALS: BP 146/90
[2018-05-01] MEDS: ENOXAPARIN 40 MG/0.4 ML SQ SCH (21:07)
[2018-05-01] MEDS: ACETAMINOPHEN 325 MG TABLET PO PRN (21:09)
[2018-05-02 00:35] VITALS: BP 141/82
[2018-05-02] MEDS: NYSTATIN CRM 15GM TP SCH ×4 (02:15→21:54)
[2018-05-02] MEDS: OXYcodone/APAP 5/325MG TABLET PO PRN ×2 (02:15→21:55)
[2018-05-02] MEDS: AMPICILLIN/SULBACTAM 3 GM in SODIUM CHLORIDE 0.9% 100 ML IV SCH ×4 (02:16→19:36)
[2018-05-02 04:56] LABS: HCT (SEDRATE) 31.6 % (39.2-51.8)
[2018-05-02 04:57] LABS: BASOPHILS # (AUTO) 0.01 x10^3/uL (0-0.1); BASOPHILS % (AUTO) 0 % (0-1); EOSINOPHILS # (AUTO) 0.05 x10^3/uL (0-0.4); EOSINOPHILS % (AUTO) 1 % (1-7); LYMPHOCYTES # (AUTO) 0.89 x10^3/uL (1-3.4); LYMPHOCYTES % (AUTO) 14 % (22-44); MD NO; MEAN CORPUSCULAR HEMOGLOBIN 28.9 pg (27.5-34.5); MEAN CORPUSCULAR HGB CONC 31.6 g/dL (33.2-36.2); MEAN CORPUSCULAR VOLUME 91.5 fL (81-97); MEAN PLATELET VOLUME 8.7 fL (7.4-10.4); MONOCYTES # (AUTO) 0.31 x10^3/uL (0.2-0.8); MONOCYTES % (AUTO) 5 % (2-9); NEUTROPHILS # (AUTO) 5.05 x10^3/uL (1.8-6.8); NEUTROPHILS % (AUTO) 80 % (42-75); PLATELET COUNT 281 x10^3/uL (130-400); RED BLOOD COUNT 3.47 x10^6/uL (4.38-5.82)
[2018-05-02 05:09] LABS: CHLORIDE 106 mmol/L (98-107)
[2018-05-02 05:20] LABS: ALANINE AMINOTRANSFERASE 33 U/L (12-78); ALBUMIN 1.7 g/dL (3.4-5.0); ALKALINE PHOSPHATASE 78 U/L (45-117); ANION GAP 3 mmol/L (5-15); BILIRUBIN,TOTAL 0.5 mg/dL (0.2-1.0); CALCIUM 8.2 mg/dL (8.5-10.1); CREATININE 0.61 mg/dL (0.7-1.3); TOTAL PROTEIN 5.4 g/dL (6.4-8.2)
[2018-05-02 06:40] VITALS: BP 169/83
[2018-05-02] MEDS: PANTOPROZOLE 40MG TABLET PO SCH (07:41)
[2018-05-02] MEDS: ASPIRIN 325 MG TABLET PO SCH (07:41)
[2018-05-02] MEDS: FUROSEMIDE 40 MG TABLET PO SCH (08:16)
[2018-05-02] MEDS: POTASSIUM CHLORIDE 20 MEQ TAB.ER.PRT PO SCH ×2 (08:16→21:54)
[2018-05-02] MEDS: LACTOBACILLUS CHEW TABLET PO SCH ×3 (08:16→21:54)
[2018-05-02 14:19] VITALS: BP 136/85
[2018-05-02 19:11] VITALS: BP 151/89
[2018-05-02] MEDS: ENOXAPARIN 40 MG/0.4 ML SQ SCH (21:55)
[2018-05-03 01:41] VITALS: BP 155/88
[2018-05-03] MEDS: OXYcodone/APAP 5/325MG TABLET PO PRN ×4 (02:22→15:59)
[2018-05-03] MEDS: AMPICILLIN/SULBACTAM 3 GM in SODIUM CHLORIDE 0.9% 100 ML IV SCH ×4 (02:24→21:39)
[2018-05-03] MEDS: ASPIRIN 325 MG TABLET PO SCH (06:25)
[2018-05-03] MEDS: PANTOPROZOLE 40MG TABLET PO SCH (06:25)
[2018-05-03 06:50] VITALS: BP 148/89
[2018-05-03] MEDS: POTASSIUM CHLORIDE 20 MEQ TAB.ER.PRT PO SCH ×2 (07:54→21:00)
[2018-05-03] MEDS: FUROSEMIDE 40 MG TABLET PO SCH (07:54)
[2018-05-03] MEDS: NYSTATIN CRM 15GM TP SCH ×3 (07:55→21:00)
[2018-05-03] MEDS: LACTOBACILLUS CHEW TABLET PO SCH ×3 (07:55→21:00)
[2018-05-03] MEDS: MORPHINE SULFATE 4 MG/ML, 1ML IVPush PRN ×3 (10:40→20:45)
[2018-05-03 12:36] VITALS: BP 132/74
[2018-05-03] MEDS ORDERED: FENTANYL PF 250 MCG/5ML ONE ×2 (16:51→18:41)
[2018-05-03] MEDS ORDERED: MIDAZOLAM 1 MG/ML, 2ML ONE (16:51)
[2018-05-03] MEDS ORDERED: PROPOFOL 10 MG/ML, 20ML ONE (16:52)
[2018-05-03] MEDS ORDERED: ROCURONIUM 10MG/ML,5ML ONE ×2 (16:53→17:53)
[2018-05-03] MEDS ORDERED: CEFOTETAN PMX 2GM/50ML 50 ML ONE (16:53)
[2018-05-03] MEDS ORDERED: NEOSTIGMINE 1 MG/ML, 10ML ONE (16:55)
[2018-05-03] MEDS ORDERED: GLYCOPYRROLATE 0.4 MG/2 ML, 2ML ONE (16:55)
[2018-05-03] MEDS ORDERED: SUCCINYLCHOLINE 20 MG/ML, 10ML ONE (17:18)
[2018-05-03] MEDS ORDERED: hydrALAzine 20 MG/ML, 1ML IV PRN (17:30)
[2018-05-03] MEDS ORDERED: PROMETHAZINE 12.5 MG SUPP PR PRN (17:30)
[2018-05-03] MEDS ORDERED: LABETALOL 5MG/ML, 20ML IV PRN (17:30)
[2018-05-03] MEDS ORDERED: PROMETHAZINE 25 MG/ML, 1ML IV PRN (17:30)
[2018-05-03] MEDS ORDERED: ONDANSETRON ODT 8 MG PO PRN (17:30)
[2018-05-03] MEDS ORDERED: OXYcodone 5 MG/5 ML ORAL.SOL UDC PO PRN (17:30)
[2018-05-03] MEDS ORDERED: PROMETHAZINE 25 MG SUPP PR PRN (17:30)
[2018-05-03] MEDS ORDERED: ALBUTEROL SULFATE 2.5 MG/3 ML NPPB PRN (17:30)
[2018-05-03] MEDS ORDERED: HYDROmorphone 2 MG/ML, 1ML IVPush PRN (17:30)
[2018-05-03] MEDS ORDERED: PROMETHAZINE 25 MG/ML, 1ML IM PRN ×2 (17:30)
[2018-05-03] MEDS ORDERED: ONDANSETRON 2MG/ML, 2ML IV PRN (17:30)
[2018-05-03] MEDS ORDERED: FENTANYL PF 100 MCG/2ML ONE (20:15)
[2018-05-03] MEDS ORDERED: PROMETHAZINE 25 MG/ML, 1ML ONE (20:16)
[2018-05-03] MEDS: FENTANYL PF 100 MCG/2ML IV PRN ×4 (20:17→20:35)
[2018-05-03] MEDS ORDERED: MORPHINE SULFATE 4 MG/ML, 1ML ONE (20:42)
[2018-05-03] MEDS: ENOXAPARIN 40 MG/0.4 ML SQ SCH (21:00)
[2018-05-03 21:20] VITALS: BP 147/88
[2018-05-04] MEDS: FENTANYL PF 100 MCG/2ML IVPush PRN ×8 (00:12→22:18)
[2018-05-04 00:38] VITALS: BP 139/88
[2018-05-04 03:22] VITALS: BP 134/89
[2018-05-04] MEDS: AMPICILLIN/SULBACTAM 3 GM in SODIUM CHLORIDE 0.9% 100 ML IV SCH ×4 (04:05→21:41)
[2018-05-04] MEDS: PANTOPROZOLE 40MG TABLET PO SCH (04:05)
[2018-05-04] MEDS: ASPIRIN 325 MG TABLET PO SCH (04:05)
[2018-05-04 05:33] LABS: BASOPHILS % (AUTO) 0 % (0-1); EOSINOPHILS # (AUTO) 0.01 x10^3/uL (0-0.4); EOSINOPHILS % (AUTO) 0 % (1-7); LYMPHOCYTES % (AUTO) 7 % (22-44); MD NO; MEAN CORPUSCULAR HEMOGLOBIN 29.4 pg (27.5-34.5); MEAN CORPUSCULAR HGB CONC 32.1 g/dL (33.2-36.2); MEAN CORPUSCULAR VOLUME 91.6 fL (81-97); MEAN PLATELET VOLUME 9.1 fL (7.4-10.4); MONOCYTES # (AUTO) 0.44 x10^3/uL (0.2-0.8); MONOCYTES % (AUTO) 4 % (2-9); NEUTROPHILS # (AUTO) 10.71 x10^3/uL (1.8-6.8); NEUTROPHILS % (AUTO) 90 % (42-75); PLATELET COUNT 286 x10^3/uL (130-400); RED BLOOD COUNT 3.84 x10^6/uL (4.38-5.82); RED CELL DISTRIBUTION WIDTH 15.8 % (9.4-14.8)
[2018-05-04 05:43] LABS: ALBUMIN 1.8 g/dL (3.4-5.0); ANION GAP 7 mmol/L (5-15); CALCIUM 8.5 mg/dL (8.5-10.1); CHLORIDE 101 mmol/L (98-107)
[2018-05-04 05:51] LABS: ALANINE AMINOTRANSFERASE 33 U/L (12-78); ALKALINE PHOSPHATASE 75 U/L (45-117); BILIRUBIN,TOTAL 0.4 mg/dL (0.2-1.0); CREATININE 0.67 mg/dL (0.7-1.3); TOTAL PROTEIN 5.5 g/dL (6.4-8.2)
[2018-05-04 05:54] LABS: HCT (SEDRATE) 35.2 % (39.2-51.8)
[2018-05-04 06:28] VITALS: BP 122/80
[2018-05-04] MEDS: POTASSIUM CHLORIDE 20 MEQ TAB.ER.PRT PO SCH ×2 (08:09→19:21)
[2018-05-04] MEDS: LACTOBACILLUS CHEW TABLET PO SCH ×3 (08:09→19:21)
[2018-05-04] MEDS: FUROSEMIDE 40 MG TABLET PO SCH (08:37)
[2018-05-04] MEDS: NYSTATIN CRM 15GM TP SCH ×3 (09:41→20:49)
[2018-05-04] MEDS: FUROSEMIDE 20 MG/2 ML IV SCH (09:41)
[2018-05-04 13:42] VITALS: BP 120/74
[2018-05-04 18:50] VITALS: BP 146/83
[2018-05-04] MEDS: ENOXAPARIN 40 MG/0.4 ML SQ SCH (20:49)
[2018-05-05] MEDS: FENTANYL PF 100 MCG/2ML IVPush PRN ×3 (00:32→06:46)
[2018-05-05] MEDS: ASPIRIN 325 MG TABLET PO SCH (02:21)
[2018-05-05] MEDS: PANTOPROZOLE 40MG TABLET PO SCH (02:21)
[2018-05-05] MEDS: AMPICILLIN/SULBACTAM 3 GM in SODIUM CHLORIDE 0.9% 100 ML IV SCH ×4 (03:52→21:17)
[2018-05-05 04:22] VITALS: BP 124/74
[2018-05-05 05:45] LABS: BASOPHILS # (AUTO) 0.01 x10^3/uL (0-0.1); BASOPHILS % (AUTO) 0 % (0-1); EOSINOPHILS # (AUTO) 0.07 x10^3/uL (0-0.4); EOSINOPHILS % (AUTO) 1 % (1-7); LYMPHOCYTES # (AUTO) 1.01 x10^3/uL (1-3.4); LYMPHOCYTES % (AUTO) 8 % (22-44); MD NO; MEAN CORPUSCULAR HEMOGLOBIN 30.6 pg (27.5-34.5); MEAN CORPUSCULAR HGB CONC 33.2 g/dL (33.2-36.2); MEAN CORPUSCULAR VOLUME 92.3 fL (81-97); MEAN PLATELET VOLUME 9.5 fL (7.4-10.4); MONOCYTES # (AUTO) 0.73 x10^3/uL (0.2-0.8); MONOCYTES % (AUTO) 6 % (2-9); NEUTROPHILS # (AUTO) 10.35 x10^3/uL (1.8-6.8); NEUTROPHILS % (AUTO) 85 % (42-75); PLATELET COUNT 269 x10^3/uL (130-400); RED BLOOD COUNT 3.34 x10^6/uL (4.38-5.82); RED CELL DISTRIBUTION WIDTH 15.8 % (9.4-14.8)
[2018-05-05 05:57] LABS: ANION GAP 8 mmol/L (5-15); CALCIUM 8.3 mg/dL (8.5-10.1); CHLORIDE 103 mmol/L (98-107)
[2018-05-05 05:58] LABS: CREATININE 0.58 mg/dL (0.7-1.3)
[2018-05-05 07:20] VITALS: BP 138/74
[2018-05-05] MEDS: FUROSEMIDE 20 MG/2 ML IV SCH (08:41)
[2018-05-05] MEDS: FUROSEMIDE 40 MG TABLET PO SCH (09:00)
[2018-05-05] MEDS: OXYcodone/APAP 5/325MG TABLET PO PRN ×4 (09:26→21:13)
[2018-05-05] MEDS: LACTOBACILLUS CHEW TABLET PO SCH ×3 (12:36→20:26)
[2018-05-05] MEDS: POTASSIUM CHLORIDE 20 MEQ TAB.ER.PRT PO SCH ×2 (12:37→20:26)
[2018-05-05] MEDS: NYSTATIN CRM 15GM TP SCH ×3 (12:40→21:17)
[2018-05-05 13:01] VITALS: BP 119/73
[2018-05-05 19:25] VITALS: BP 124/76
[2018-05-05] MEDS: ENOXAPARIN 40 MG/0.4 ML SQ SCH (21:13)
[2018-05-06] MEDS: OXYcodone/APAP 5/325MG TABLET PO PRN ×4 (01:13→22:08)
[2018-05-06 03:11] VITALS: BP 138/75
[2018-05-06] MEDS: AMPICILLIN/SULBACTAM 3 GM in SODIUM CHLORIDE 0.9% 100 ML IV SCH ×4 (03:14→21:30)
[2018-05-06] MEDS: ASPIRIN 325 MG TABLET PO SCH (05:01)
[2018-05-06] MEDS: PANTOPROZOLE 40MG TABLET PO SCH (05:01)
[2018-05-06 06:54] VITALS: BP 136/80
[2018-05-06] MEDS: FUROSEMIDE 40 MG TABLET PO SCH (08:10)
[2018-05-06] MEDS: LACTOBACILLUS CHEW TABLET PO SCH ×3 (09:00→21:30)
[2018-05-06] MEDS: POTASSIUM CHLORIDE 20 MEQ TAB.ER.PRT PO SCH ×2 (09:00→21:30)
[2018-05-06] MEDS: NYSTATIN CRM 15GM TP SCH ×3 (09:43→21:30)
[2018-05-06] MEDS: METOCLOPRAMIDE 5 MG/ML, 2ML IVPush SCH ×3 (10:19→21:30)
[2018-05-06] MEDS ORDERED: FENTANYL PF 100 MCG/2ML ONE ×2 (12:31→14:19)
[2018-05-06] MEDS ORDERED: MIDAZOLAM 1 MG/ML, 2ML ONE (12:31)
[2018-05-06 12:41] VITALS: BP 133/84
[2018-05-06] MEDS ORDERED: PROPOFOL 10 MG/ML, 20ML ONE (12:45)
[2018-05-06] MEDS ORDERED: ONDANSETRON 2MG/ML, 2ML ONE (12:45)
[2018-05-06] MEDS ORDERED: DEXAMETHASONE 4 MG/ML, 1ML ONE (12:45)
[2018-05-06] MEDS ORDERED: METOCLOPRAMIDE 5 MG/ML, 2ML ONE (12:45)
[2018-05-06] MEDS ORDERED: HYDROmorphone 2 MG/ML, 1ML ONE ×2 (14:19→23:43)
[2018-05-06] MEDS ORDERED: OXYcodone 5 MG/5 ML ORAL.SOL UDC ONE (14:19)
[2018-05-06] MEDS ORDERED: LABETALOL 5MG/ML, 20ML IV PRN (14:30)
[2018-05-06] MEDS ORDERED: FENTANYL PF 100 MCG/2ML IV PRN (14:30)
[2018-05-06] MEDS ORDERED: HYDROmorphone 1 MG/ML, 1ML IV PRN (14:30)
[2018-05-06] MEDS ORDERED: MEPERIDINE/PF 25MG/0.5ML IVPush PRN (14:30)
[2018-05-06] MEDS ORDERED: MIDAZOLAM 1 MG/ML, 2ML IV PRN (14:30)
[2018-05-06] MEDS ORDERED: ONDANSETRON 2MG/ML, 2ML IVPush PRN (14:30)
[2018-05-06] MEDS ORDERED: OXYcodone 5 MG/5 ML ORAL.SOL UDC PO PRN (14:30)
[2018-05-06 20:28] VITALS: BP 111/78
[2018-05-06] MEDS: ENOXAPARIN 40 MG/0.4 ML SQ SCH (21:29)
[2018-05-07] MEDS ORDERED: HYDROmorphone 2 MG/ML, 1ML IV PRN
[2018-05-07] MEDS: OXYcodone/APAP 5/325MG TABLET PO PRN ×5 (03:14→22:23)
[2018-05-07] MEDS: AMPICILLIN/SULBACTAM 3 GM in SODIUM CHLORIDE 0.9% 100 ML IV SCH ×4 (03:15→21:07)
[2018-05-07] MEDS: METOCLOPRAMIDE 5 MG/ML, 2ML IVPush SCH ×4 (03:15→21:08)
[2018-05-07 03:25] VITALS: BP 115/70
[2018-05-07] MEDS: PANTOPROZOLE 40MG TABLET PO SCH (06:27)
[2018-05-07] MEDS: ASPIRIN 325 MG TABLET PO SCH (06:27)
[2018-05-07 07:25] VITALS: BP 141/82
[2018-05-07] MEDS: FUROSEMIDE 40 MG TABLET PO SCH (08:49)
[2018-05-07] MEDS: POTASSIUM CHLORIDE 20 MEQ TAB.ER.PRT PO SCH ×2 (08:49→21:07)
[2018-05-07] MEDS: NYSTATIN CRM 15GM TP SCH ×3 (08:50→21:08)
[2018-05-07] MEDS: LACTOBACILLUS CHEW TABLET PO SCH ×3 (08:51→21:07)
[2018-05-07] MEDS: HYDROmorphone 2 MG/ML, 1ML IV PRN (13:26)
[2018-05-07 14:16] VITALS: BP 127/70
[2018-05-07 19:27] VITALS: BP 109/67
[2018-05-07] MEDS: ENOXAPARIN 40 MG/0.4 ML SQ SCH (21:08)
[2018-05-08 02:25] VITALS: BP 130/82
[2018-05-08] MEDS: OXYcodone/APAP 5/325MG TABLET PO PRN ×4 (03:28→20:16)
[2018-05-08] MEDS: AMPICILLIN/SULBACTAM 3 GM in SODIUM CHLORIDE 0.9% 100 ML IV SCH ×4 (03:29→21:51)
[2018-05-08] MEDS: METOCLOPRAMIDE 5 MG/ML, 2ML IVPush SCH ×4 (03:29→20:15)
[2018-05-08] MEDS: PANTOPROZOLE 40MG TABLET PO SCH (06:34)
[2018-05-08] MEDS: ASPIRIN 325 MG TABLET PO SCH (06:34)
[2018-05-08 07:30] VITALS: BP 129/73
[2018-05-08] MEDS: LACTOBACILLUS CHEW TABLET PO SCH ×3 (08:53→20:15)
[2018-05-08] MEDS: POTASSIUM CHLORIDE 20 MEQ TAB.ER.PRT PO SCH ×2 (08:53→20:16)
[2018-05-08] MEDS: FUROSEMIDE 40 MG TABLET PO SCH (08:54)
[2018-05-08] MEDS: NYSTATIN CRM 15GM TP SCH ×4 (08:54→21:00)
[2018-05-08 14:53] VITALS: BP 122/72
[2018-05-08 20:13] VITALS: BP 101/57
[2018-05-08] MEDS: ENOXAPARIN 40 MG/0.4 ML SQ SCH (20:16)
[2018-05-09 01:42] VITALS: BP 108/57
[2018-05-09] MEDS: OXYcodone/APAP 5/325MG TABLET PO PRN ×4 (01:58→21:32)
[2018-05-09] MEDS: AMPICILLIN/SULBACTAM 3 GM in SODIUM CHLORIDE 0.9% 100 ML IV SCH ×4 (03:46→21:38)
[2018-05-09] MEDS: METOCLOPRAMIDE 5 MG/ML, 2ML IVPush SCH ×4 (03:46→21:30)
[2018-05-09] MEDS: ASPIRIN 325 MG TABLET PO SCH (06:03)
[2018-05-09] MEDS: PANTOPROZOLE 40MG TABLET PO SCH (06:03)
[2018-05-09 07:40] VITALS: BP 120/85
[2018-05-09] MEDS: LACTOBACILLUS CHEW TABLET PO SCH ×3 (08:39→21:29)
[2018-05-09] MEDS: POTASSIUM CHLORIDE 20 MEQ TAB.ER.PRT PO SCH ×2 (08:39→21:30)
[2018-05-09] MEDS: FUROSEMIDE 40 MG TABLET PO SCH (08:40)
[2018-05-09] MEDS: NYSTATIN CRM 15GM TP SCH ×3 (08:53→21:00)
[2018-05-09] MEDS: HYDROmorphone 2 MG/ML, 1ML IV PRN (09:22)
[2018-05-09 14:59] VITALS: BP 115/75
[2018-05-09 20:07] VITALS: BP 111/76
[2018-05-09] MEDS: ENOXAPARIN 40 MG/0.4 ML SQ SCH (21:30)
[2018-05-10] MEDS: OXYcodone/APAP 5/325MG TABLET PO PRN ×5 (01:41→21:53)
[2018-05-10 01:45] VITALS: BP 98/63
[2018-05-10] MEDS: AMPICILLIN/SULBACTAM 3 GM in SODIUM CHLORIDE 0.9% 100 ML IV SCH ×4 (04:16→22:07)
[2018-05-10] MEDS: METOCLOPRAMIDE 5 MG/ML, 2ML IVPush SCH ×4 (04:16→21:54)
[2018-05-10 05:42] LABS: CREATININE 0.77 mg/dL (0.7-1.3)
[2018-05-10] MEDS: ASPIRIN 325 MG TABLET PO SCH (06:23)
[2018-05-10] MEDS: PANTOPROZOLE 40MG TABLET PO SCH (06:24)
[2018-05-10 08:24] VITALS: BP 120/79
[2018-05-10] MEDS: POTASSIUM CHLORIDE 20 MEQ TAB.ER.PRT PO SCH ×2 (08:54→21:54)
[2018-05-10] MEDS: LACTOBACILLUS CHEW TABLET PO SCH ×3 (08:54→21:54)
[2018-05-10] MEDS: FUROSEMIDE 40 MG TABLET PO SCH (08:55)
[2018-05-10] MEDS: NYSTATIN CRM 15GM TP SCH ×3 (08:55→21:54)
[2018-05-10 15:57] VITALS: BP 117/73
[2018-05-10 20:12] VITALS: BP 117/77
[2018-05-10] MEDS: ENOXAPARIN 40 MG/0.4 ML SQ SCH (21:53)
[2018-05-11 03:09] VITALS: BP 100/66
[2018-05-11] MEDS: OXYcodone/APAP 5/325MG TABLET PO PRN ×4 (03:41→22:13)
[2018-05-11] MEDS: METOCLOPRAMIDE 5 MG/ML, 2ML IVPush SCH ×4 (03:41→22:13)
[2018-05-11] MEDS: AMPICILLIN/SULBACTAM 3 GM in SODIUM CHLORIDE 0.9% 100 ML IV SCH ×4 (03:47→22:13)
[2018-05-11] MEDS: PANTOPROZOLE 40MG TABLET PO SCH (05:47)
[2018-05-11] MEDS: ASPIRIN 325 MG TABLET PO SCH (05:47)
[2018-05-11 07:17] VITALS: BP 126/78
[2018-05-11] MEDS: FUROSEMIDE 40 MG TABLET PO SCH (08:56)
[2018-05-11] MEDS: POTASSIUM CHLORIDE 20 MEQ TAB.ER.PRT PO SCH ×2 (08:57→22:13)
[2018-05-11] MEDS: LACTOBACILLUS CHEW TABLET PO SCH ×3 (08:57→22:13)
[2018-05-11] MEDS: NYSTATIN CRM 15GM TP SCH ×3 (08:58→21:00)
[2018-05-11] MEDS: HYDROmorphone 2 MG/ML, 1ML IV PRN (11:45)
[2018-05-11 13:16] VITALS: BP 116/69
[2018-05-11 20:39] VITALS: BP 119/74
[2018-05-11] MEDS: ENOXAPARIN 40 MG/0.4 ML SQ SCH (22:13)
[2018-05-12] MEDS: OXYcodone/APAP 5/325MG TABLET PO PRN ×5 (04:17→22:31)
[2018-05-12] MEDS: METOCLOPRAMIDE 5 MG/ML, 2ML IVPush SCH ×4 (04:17→21:25)
[2018-05-12] MEDS: AMPICILLIN/SULBACTAM 3 GM in SODIUM CHLORIDE 0.9% 100 ML IV SCH ×4 (04:17→21:25)
[2018-05-12 04:29] VITALS: BP 111/70
[2018-05-12] MEDS: PANTOPROZOLE 40MG TABLET PO SCH (06:00)
[2018-05-12] MEDS: ASPIRIN 325 MG TABLET PO SCH (06:00)
[2018-05-12 07:39] VITALS: BP 103/70
[2018-05-12] MEDS: FUROSEMIDE 40 MG TABLET PO SCH (09:27)
[2018-05-12] MEDS: NYSTATIN CRM 15GM TP SCH ×3 (09:27→21:00)
[2018-05-12] MEDS: LACTOBACILLUS CHEW TABLET PO SCH ×3 (09:27→21:24)
[2018-05-12] MEDS: POTASSIUM CHLORIDE 20 MEQ TAB.ER.PRT PO SCH ×2 (09:27→21:24)
[2018-05-12 14:24] VITALS: BP 94/64
[2018-05-12 19:43] VITALS: BP 122/76
[2018-05-12] MEDS: ENOXAPARIN 40 MG/0.4 ML SQ SCH (21:26)
[2018-05-13] MEDS: OXYcodone/APAP 5/325MG TABLET PO PRN ×6 (03:14→23:10)
[2018-05-13] MEDS: AMPICILLIN/SULBACTAM 3 GM in SODIUM CHLORIDE 0.9% 100 ML IV SCH ×4 (03:14→21:25)
[2018-05-13] MEDS: METOCLOPRAMIDE 5 MG/ML, 2ML IVPush SCH ×4 (03:15→21:26)
[2018-05-13 03:17] VITALS: BP 124/70
[2018-05-13 04:57] LABS: CREATININE 0.98 mg/dL (0.7-1.3)
[2018-05-13] MEDS: ASPIRIN 325 MG TABLET PO SCH (06:48)
[2018-05-13] MEDS: PANTOPROZOLE 40MG TABLET PO SCH (06:48)
[2018-05-13 07:45] VITALS: BP 104/68
[2018-05-13] MEDS: FUROSEMIDE 40 MG TABLET PO SCH (08:37)
[2018-05-13] MEDS: POTASSIUM CHLORIDE 20 MEQ TAB.ER.PRT PO SCH ×2 (08:38→21:25)
[2018-05-13] MEDS: LACTOBACILLUS CHEW TABLET PO SCH ×3 (08:38→21:25)
[2018-05-13] MEDS: NYSTATIN CRM 15GM TP SCH ×3 (10:39→21:26)
[2018-05-13] MEDS: HYDROmorphone 2 MG/ML, 1ML IV PRN (10:43)
[2018-05-13 13:39] VITALS: BP 123/76
[2018-05-13 20:42] VITALS: BP 108/72
[2018-05-13] MEDS: ENOXAPARIN 40 MG/0.4 ML SQ SCH (21:25)
[2018-05-14 01:04] VITALS: BP 110/67
[2018-05-14] MEDS: METOCLOPRAMIDE 5 MG/ML, 2ML IVPush SCH ×4 (03:15→20:52)
[2018-05-14] MEDS: OXYcodone/APAP 5/325MG TABLET PO PRN ×5 (03:15→20:52)
[2018-05-14] MEDS: AMPICILLIN/SULBACTAM 3 GM in SODIUM CHLORIDE 0.9% 100 ML IV SCH ×2 (03:15→09:42)
[2018-05-14] MEDS: ASPIRIN 325 MG TABLET PO SCH (06:03)
[2018-05-14] MEDS: PANTOPROZOLE 40MG TABLET PO SCH (06:04)
[2018-05-14 07:52] VITALS: BP 100/65
[2018-05-14] MEDS: LACTOBACILLUS CHEW TABLET PO SCH ×3 (08:06→20:51)
[2018-05-14] MEDS: POTASSIUM CHLORIDE 20 MEQ TAB.ER.PRT PO SCH ×2 (08:06→20:51)
[2018-05-14] MEDS: NYSTATIN CRM 15GM TP SCH ×3 (08:06→20:54)
[2018-05-14] MEDS: FUROSEMIDE 40 MG TABLET PO SCH (08:06)
[2018-05-14] MEDS: AMOXICILLIN/CLAV 875-125MG TABLET PO SCH ×2 (12:46→20:51)
[2018-05-14 13:26] VITALS: BP 96/61
[2018-05-14 20:04] VITALS: BP 106/71
[2018-05-14] MEDS: ENOXAPARIN 40 MG/0.4 ML SQ SCH (20:52)
[2018-05-15 01:10] VITALS: BP 108/75
[2018-05-15] MEDS: OXYcodone/APAP 5/325MG TABLET PO PRN ×5 (01:13→20:57)
[2018-05-15] MEDS: METOCLOPRAMIDE 5 MG/ML, 2ML IVPush SCH ×4 (03:57→20:58)
[2018-05-15] MEDS: AMOXICILLIN/CLAV 875-125MG TABLET PO SCH ×3 (05:07→20:57)
[2018-05-15] MEDS: PANTOPROZOLE 40MG TABLET PO SCH (05:07)
[2018-05-15] MEDS: ASPIRIN 325 MG TABLET PO SCH (05:07)
[2018-05-15 05:27] LABS: ANION GAP 5 mmol/L (5-15); CALCIUM 9.6 mg/dL (8.5-10.1); CHLORIDE 101 mmol/L (98-107); CREATININE 1.06 mg/dL (0.7-1.3)
[2018-05-15 05:32] LABS: MEAN CORPUSCULAR HEMOGLOBIN 29.7 pg (27.5-34.5); MEAN CORPUSCULAR HGB CONC 32.3 g/dL (33.2-36.2); MEAN CORPUSCULAR VOLUME 91.9 fL (81-97); MEAN PLATELET VOLUME 9.8 fL (7.4-10.4); PLATELET COUNT 384 x10^3/uL (130-400); RED BLOOD COUNT 3.07 x10^6/uL (4.38-5.82); RED CELL DISTRIBUTION WIDTH 14.9 % (9.4-14.8)
[2018-05-15 06:18] LABS: BASOPHILS # (AUTO) 0.04 x10^3/uL (0-0.1); BASOPHILS % (AUTO) 0 % (0-1); EOSINOPHILS # (AUTO) 0.31 x10^3/uL (0-0.4); EOSINOPHILS % (AUTO) 4 % (1-7); LYMPHOCYTES # (AUTO) 1.52 x10^3/uL (1-3.4); LYMPHOCYTES % (AUTO) 18 % (22-44); MD SCAN; MONOCYTES # (AUTO) 0.76 x10^3/uL (0.2-0.8); MONOCYTES % (AUTO) 9 % (2-9); NEUTROPHILS # (AUTO) 5.64 x10^3/uL (1.8-6.8); NEUTROPHILS % (AUTO) 68 % (42-75)
[2018-05-15 07:03] VITALS: BP 97/63
[2018-05-15] MEDS: LACTOBACILLUS CHEW TABLET PO SCH ×3 (09:20→20:57)
[2018-05-15] MEDS: FUROSEMIDE 40 MG TABLET PO SCH (09:20)
[2018-05-15] MEDS: NYSTATIN CRM 15GM TP SCH ×3 (09:20→20:57)
[2018-05-15] MEDS: POTASSIUM CHLORIDE 20 MEQ TAB.ER.PRT PO SCH ×2 (09:20→20:57)
[2018-05-15] MEDS: HYDROmorphone 2 MG/ML, 1ML IV PRN (10:04)
[2018-05-15 12:54] VITALS: BP 126/77
[2018-05-15 19:34] VITALS: BP 99/66
[2018-05-15] MEDS: ENOXAPARIN 40 MG/0.4 ML SQ SCH (20:58)
[2018-05-16 01:08] VITALS: BP 100/68
[2018-05-16] MEDS: METOCLOPRAMIDE 5 MG/ML, 2ML IVPush SCH ×4 (03:25→22:19)
[2018-05-16] MEDS: OXYcodone/APAP 5/325MG TABLET PO PRN ×3 (04:31→21:03)
[2018-05-16] MEDS: AMOXICILLIN/CLAV 875-125MG TABLET PO SCH ×3 (04:31→21:03)
[2018-05-16] MEDS ORDERED: NITROGLYCERIN 0.4 MG BOTTLE (25 TABS) SL PRN (05:00)
[2018-05-16 05:28] LABS: HCT (SEDRATE) 27.9 % (39.2-51.8)
[2018-05-16] MEDS: ASPIRIN 325 MG TABLET PO SCH (05:35)
[2018-05-16] MEDS: PANTOPROZOLE 40MG TABLET PO SCH (05:35)
[2018-05-16 05:38] LABS: CREATININE 0.93 mg/dL (0.7-1.3)
[2018-05-16 05:38] LABS: TROPONIN I < 0.015 ng/mL (0.000-0.045)
[2018-05-16] MEDS ORDERED: MORPHINE SULFATE 4 MG/ML, 1ML IVPush ONE (06:30)
[2018-05-16 06:44] LABS: SEDIMENTATION RATE > 120 mm/hr (0-10)
[2018-05-16 07:59] VITALS: BP 110/72
[2018-05-16] MEDS: POTASSIUM CHLORIDE 20 MEQ TAB.ER.PRT PO SCH ×2 (09:45→21:03)
[2018-05-16] MEDS: FUROSEMIDE 40 MG TABLET PO SCH (09:45)
[2018-05-16] MEDS: LACTOBACILLUS CHEW TABLET PO SCH ×3 (09:45→21:03)
[2018-05-16] MEDS: NYSTATIN CRM 15GM TP SCH ×3 (09:48→22:19)
[2018-05-16] MEDS ORDERED: ALUMINUM/MAG/SIMETHICONE 30 ML UDC PO PRN (13:30)
[2018-05-16 15:12] VITALS: BP 110/68
[2018-05-16] MEDS ORDERED: HEPARIN 5,000 UNITS/ML, 1ML IV PRN (18:00)
[2018-05-16] MEDS ORDERED: HEPARIN 25,000 UNITS/500ML PMX 500 ML IV PRN (18:00)
[2018-05-16] MEDS ORDERED: HEPARIN 5,000 UNITS/ML, 1ML IV ONE (18:00)
[2018-05-16 18:12] LABS: PLATELET COUNT 365 x10^3/uL (130-400)
[2018-05-16 18:50] VITALS: BP 114/71
[2018-05-16] MEDS: ENOXAPARIN 150 MG/ML SQ SCH (21:03)
[2018-05-17 00:35] VITALS: BP 120/75
[2018-05-17] MEDS: OXYcodone/APAP 5/325MG TABLET PO PRN ×5 (00:40→20:31)
[2018-05-17] MEDS: METOCLOPRAMIDE 5 MG/ML, 2ML IVPush SCH ×4 (04:19→22:36)
[2018-05-17 05:19] LABS: BASOPHILS # (AUTO) 0.04 x10^3/uL (0-0.1); BASOPHILS % (AUTO) 1 % (0-1); EOSINOPHILS # (AUTO) 0.42 x10^3/uL (0-0.4); EOSINOPHILS % (AUTO) 5 % (1-7); LYMPHOCYTES # (AUTO) 1.67 x10^3/uL (1-3.4); LYMPHOCYTES % (AUTO) 21 % (22-44); MD NO; MEAN CORPUSCULAR HEMOGLOBIN 29.6 pg (27.5-34.5); MEAN CORPUSCULAR HGB CONC 32.1 g/dL (33.2-36.2); MEAN CORPUSCULAR VOLUME 92.2 fL (81-97); MEAN PLATELET VOLUME 9.9 fL (7.4-10.4); MONOCYTES # (AUTO) 0.86 x10^3/uL (0.2-0.8); MONOCYTES % (AUTO) 11 % (2-9); NEUTROPHILS % (AUTO) 63 % (42-75); PLATELET COUNT 342 x10^3/uL (130-400); RED BLOOD COUNT 2.88 x10^6/uL (4.38-5.82); RED CELL DISTRIBUTION WIDTH 15.3 % (9.4-14.8)
[2018-05-17 05:22] LABS: ANION GAP 5 mmol/L (5-15); CALCIUM 9.5 mg/dL (8.5-10.1); CHLORIDE 103 mmol/L (98-107); CREATININE 0.93 mg/dL (0.7-1.3)
[2018-05-17] MEDS: AMOXICILLIN/CLAV 875-125MG TABLET PO SCH ×3 (05:26→20:31)
[2018-05-17] MEDS: ASPIRIN 325 MG TABLET PO SCH (05:26)
[2018-05-17] MEDS: PANTOPROZOLE 40MG TABLET PO SCH (05:26)
[2018-05-17 07:12] VITALS: BP 123/78
[2018-05-17] MEDS: NYSTATIN CRM 15GM TP SCH ×3 (09:47→20:30)
[2018-05-17] MEDS: ENOXAPARIN 150 MG/ML SQ SCH (09:48)
[2018-05-17] MEDS: LACTOBACILLUS CHEW TABLET PO SCH ×3 (09:49→20:31)
[2018-05-17] MEDS: FUROSEMIDE 40 MG TABLET PO SCH (09:49)
[2018-05-17] MEDS: POTASSIUM CHLORIDE 20 MEQ TAB.ER.PRT PO SCH ×2 (09:49→20:31)
[2018-05-17 16:10] VITALS: BP 107/70
[2018-05-17 20:12] VITALS: BP 111/72
[2018-05-17] MEDS: APIXABAN 5 MG TABLET PO SCH (20:31)
[2018-05-18 00:15] VITALS: BP 121/73
[2018-05-18] MEDS: PANTOPROZOLE 40MG TABLET PO SCH (05:03)
[2018-05-18] MEDS: OXYcodone/APAP 5/325MG TABLET PO PRN ×3 (05:04→17:21)
[2018-05-18] MEDS: ASPIRIN 325 MG TABLET PO SCH (05:04)
[2018-05-18] MEDS: AMOXICILLIN/CLAV 875-125MG TABLET PO SCH ×3 (05:04→20:20)
[2018-05-18] MEDS: METOCLOPRAMIDE 5 MG/ML, 2ML IVPush SCH ×4 (05:04→22:41)
[2018-05-18 06:34] LABS: BASOPHILS # (AUTO) 0.04 x10^3/uL (0-0.1); BASOPHILS % (AUTO) 1 % (0-1); EOSINOPHILS # (AUTO) 0.39 x10^3/uL (0-0.4); EOSINOPHILS % (AUTO) 5 % (1-7); LYMPHOCYTES % (AUTO) 18 % (22-44); MD NO; MEAN CORPUSCULAR HEMOGLOBIN 30.2 pg (27.5-34.5); MEAN CORPUSCULAR HGB CONC 33.2 g/dL (33.2-36.2); MEAN PLATELET VOLUME 9.9 fL (7.4-10.4); MONOCYTES # (AUTO) 0.71 x10^3/uL (0.2-0.8); MONOCYTES % (AUTO) 10 % (2-9); NEUTROPHILS # (AUTO) 4.94 x10^3/uL (1.8-6.8); NEUTROPHILS % (AUTO) 67 % (42-75); PLATELET COUNT 314 x10^3/uL (130-400); RED BLOOD COUNT 2.84 x10^6/uL (4.38-5.82); RED CELL DISTRIBUTION WIDTH 15.2 % (9.4-14.8)
[2018-05-18 06:40] LABS: ANION GAP 8 mmol/L (5-15); CALCIUM 9.1 mg/dL (8.5-10.1); CHLORIDE 102 mmol/L (98-107); CREATININE 0.83 mg/dL (0.7-1.3)
[2018-05-18 06:48] VITALS: BP 120/71
[2018-05-18] MEDS: POTASSIUM CHLORIDE 20 MEQ TAB.ER.PRT PO SCH ×2 (09:00→20:20)
[2018-05-18] MEDS: FUROSEMIDE 40 MG TABLET PO SCH (09:32)
[2018-05-18] MEDS: LACTOBACILLUS CHEW TABLET PO SCH ×3 (09:32→20:20)
[2018-05-18] MEDS: APIXABAN 5 MG TABLET PO SCH ×2 (09:32→20:20)
[2018-05-18] MEDS: NYSTATIN CRM 15GM TP SCH ×3 (09:33→20:20)
[2018-05-18] MEDS: HYDROmorphone 2 MG/ML, 1ML IV PRN (10:47)
[2018-05-18 13:16] VITALS: BP 119/75
[2018-05-18 20:34] VITALS: BP 131/77
[2018-05-19 00:26] VITALS: BP 128/74
[2018-05-19] MEDS: AMOXICILLIN/CLAV 875-125MG TABLET PO SCH ×3 (04:39→21:42)
[2018-05-19] MEDS: METOCLOPRAMIDE 5 MG/ML, 2ML IVPush SCH ×4 (04:40→23:24)
[2018-05-19 05:58] LABS: BASOPHILS # (AUTO) 0.04 x10^3/uL (0-0.1); BASOPHILS % (AUTO) 1 % (0-1); EOSINOPHILS # (AUTO) 0.43 x10^3/uL (0-0.4); EOSINOPHILS % (AUTO) 6 % (1-7); LYMPHOCYTES % (AUTO) 16 % (22-44); MD NO; MEAN CORPUSCULAR VOLUME 90.9 fL (81-97); MEAN PLATELET VOLUME 9.8 fL (7.4-10.4); MONOCYTES % (AUTO) 8 % (2-9); NEUTROPHILS # (AUTO) 5.48 x10^3/uL (1.8-6.8); NEUTROPHILS % (AUTO) 71 % (42-75); PLATELET COUNT 309 x10^3/uL (130-400); RED BLOOD COUNT 2.87 x10^6/uL (4.38-5.82); RED CELL DISTRIBUTION WIDTH 15.3 % (9.4-14.8)
[2018-05-19 06:04] LABS: ANION GAP 5 mmol/L (5-15); CALCIUM 9.2 mg/dL (8.5-10.1); CHLORIDE 102 mmol/L (98-107)
[2018-05-19 06:05] LABS: CREATININE 0.88 mg/dL (0.7-1.3)
[2018-05-19] MEDS: ASPIRIN 325 MG TABLET PO SCH (06:16)
[2018-05-19] MEDS: PANTOPROZOLE 40MG TABLET PO SCH (06:16)
[2018-05-19 07:14] VITALS: BP 127/88
[2018-05-19] MEDS: POTASSIUM CHLORIDE 20 MEQ TAB.ER.PRT PO SCH ×2 (09:00→21:42)
[2018-05-19] MEDS: APIXABAN 5 MG TABLET PO SCH ×2 (09:08→21:43)
[2018-05-19] MEDS: LACTOBACILLUS CHEW TABLET PO SCH ×3 (09:08→21:43)
[2018-05-19] MEDS: NYSTATIN CRM 15GM TP SCH ×3 (09:08→21:43)
[2018-05-19] MEDS: FUROSEMIDE 40 MG TABLET PO SCH (09:08)
[2018-05-19] MEDS: OXYcodone/APAP 5/325MG TABLET PO PRN (13:21)
[2018-05-19 13:29] VITALS: BP 142/75
[2018-05-19 19:33] VITALS: BP 119/75
[2018-05-20 02:57] VITALS: BP 125/80
[2018-05-20] MEDS: AMOXICILLIN/CLAV 875-125MG TABLET PO SCH ×3 (04:53→20:54)
[2018-05-20] MEDS: METOCLOPRAMIDE 5 MG/ML, 2ML IVPush SCH ×3 (04:54→17:08)
[2018-05-20 05:12] LABS: BASOPHILS # (AUTO) 0.05 x10^3/uL (0-0.1); BASOPHILS % (AUTO) 1 % (0-1); EOSINOPHILS # (AUTO) 0.51 x10^3/uL (0-0.4); EOSINOPHILS % (AUTO) 7 % (1-7); LYMPHOCYTES # (AUTO) 1.29 x10^3/uL (1-3.4); LYMPHOCYTES % (AUTO) 17 % (22-44); MD NO; MEAN CORPUSCULAR HEMOGLOBIN 29.7 pg (27.5-34.5); MEAN CORPUSCULAR HGB CONC 32.6 g/dL (33.2-36.2); MEAN CORPUSCULAR VOLUME 90.9 fL (81-97); MEAN PLATELET VOLUME 9.6 fL (7.4-10.4); MONOCYTES # (AUTO) 0.55 x10^3/uL (0.2-0.8); MONOCYTES % (AUTO) 7 % (2-9); NEUTROPHILS # (AUTO) 5.31 x10^3/uL (1.8-6.8); NEUTROPHILS % (AUTO) 69 % (42-75); PLATELET COUNT 344 x10^3/uL (130-400); RED BLOOD COUNT 2.93 x10^6/uL (4.38-5.82); RED CELL DISTRIBUTION WIDTH 15.3 % (9.4-14.8)
[2018-05-20 05:25] LABS: ANION GAP 6 mmol/L (5-15); CALCIUM 9.5 mg/dL (8.5-10.1); CHLORIDE 103 mmol/L (98-107); CREATININE 0.93 mg/dL (0.7-1.3)
[2018-05-20] MEDS: PANTOPROZOLE 40MG TABLET PO SCH (06:10)
[2018-05-20] MEDS: ASPIRIN 325 MG TABLET PO SCH (06:10)
[2018-05-20 08:37] VITALS: BP 127/79
[2018-05-20] MEDS: POTASSIUM CHLORIDE 20 MEQ TAB.ER.PRT PO SCH ×2 (09:13→20:54)
[2018-05-20] MEDS: LACTOBACILLUS CHEW TABLET PO SCH ×3 (09:14→20:53)
[2018-05-20] MEDS: APIXABAN 5 MG TABLET PO SCH ×2 (09:14→20:53)
[2018-05-20] MEDS: NYSTATIN CRM 15GM TP SCH ×3 (09:14→20:54)
[2018-05-20] MEDS: FUROSEMIDE 40 MG TABLET PO SCH (09:14)
[2018-05-20] MEDS: HYDROmorphone 2 MG/ML, 1ML IV PRN (11:10)
[2018-05-20] MEDS: OXYcodone/APAP 5/325MG TABLET PO PRN (11:12)
[2018-05-20 13:48] VITALS: BP 129/83
[2018-05-20 19:27] VITALS: BP 109/71
[2018-05-21] MEDS: METOCLOPRAMIDE 5 MG/ML, 2ML IVPush SCH ×4 (00:46→17:53)
[2018-05-21 00:52] VITALS: BP 120/71
[2018-05-21] MEDS: PANTOPROZOLE 40MG TABLET PO SCH (06:13)
[2018-05-21] MEDS: ASPIRIN 325 MG TABLET PO SCH (06:13)
[2018-05-21] MEDS: AMOXICILLIN/CLAV 875-125MG TABLET PO SCH ×3 (06:13→20:57)
[2018-05-21] MEDS: LACTOBACILLUS CHEW TABLET PO SCH ×3 (08:24→20:57)
[2018-05-21] MEDS: FUROSEMIDE 40 MG TABLET PO SCH (08:24)
[2018-05-21] MEDS: NYSTATIN CRM 15GM TP SCH ×3 (08:25→21:01)
[2018-05-21] MEDS: APIXABAN 5 MG TABLET PO SCH ×2 (08:25→20:57)
[2018-05-21] MEDS: MAGNESIUM OXIDE 400 MG TABLET PO SCH ×2 (08:25→20:57)
[2018-05-21] MEDS: POTASSIUM CHLORIDE 20 MEQ TAB.ER.PRT PO SCH ×2 (08:25→20:57)
[2018-05-21 08:36] VITALS: BP 124/76
[2018-05-21] MEDS: ACETAMINOPHEN 325 MG TABLET PO PRN (11:29)
[2018-05-21 13:20] VITALS: BP 126/73
[2018-05-21] MEDS: OXYcodone/APAP 5/325MG TABLET PO PRN ×2 (13:53→20:57)
[2018-05-21 19:00] VITALS: BP 124/76
[2018-05-22] MEDS: METOCLOPRAMIDE 5 MG/ML, 2ML IVPush SCH ×3 (00:59→12:28)
[2018-05-22 01:10] VITALS: BP 120/80
[2018-05-22] MEDS: AMOXICILLIN/CLAV 875-125MG TABLET PO SCH ×2 (06:01→12:27)
[2018-05-22] MEDS: PANTOPROZOLE 40MG TABLET PO SCH (06:01)
[2018-05-22] MEDS: ASPIRIN 325 MG TABLET PO SCH (06:01)
[2018-05-22 06:30] LABS: CREATININE 0.86 mg/dL (0.7-1.3)
[2018-05-22 07:23] VITALS: BP 122/79
[2018-05-22] MEDS: MAGNESIUM OXIDE 400 MG TABLET PO SCH (09:15)
[2018-05-22] MEDS: APIXABAN 5 MG TABLET PO SCH (09:15)
[2018-05-22] MEDS: LACTOBACILLUS CHEW TABLET PO SCH (09:15)
[2018-05-22] MEDS: FUROSEMIDE 40 MG TABLET PO SCH (09:15)
[2018-05-22] MEDS: NYSTATIN CRM 15GM TP SCH (09:18)
[2018-05-22 10:16] LABS: TROPONIN I < 0.015 ng/mL (0.000-0.045)
[2018-05-22] MEDS: OXYcodone/APAP 5/325MG TABLET PO PRN (10:42)
[2018-05-22 12:38] LABS: TROPONIN I < 0.015 ng/mL (0.000-0.045)
[2018-05-22] MEDS ORDERED: NYST15CR33 TP (13:34)
[2018-05-22] MEDS ORDERED: FURO40TA6 PO (13:34)
[2018-05-22] MEDS ORDERED: MAGN400T50 PO (13:34)
[2018-05-22] MEDS ORDERED: APIX5TAB PO (13:34)
[2018-05-22] MEDS ORDERED: AMOX1TAB12 PO (13:34)
[2018-05-22] MEDS ORDERED: PANT40TA5 PO (13:34)
[2018-05-22 14:18] VITALS: BP 158/89
== END 2018-05-22 17:15 | DRG 853 ==
LOC: ED 11:11 → EDIP 13:42 → CCU 15:59 → 4NOR 04-27 14:35 → 4EST 05-16 18:33
PROVIDERS: ADMIT Hospitalist; ATTEND Family Medicine
PROC: 02HV33Z Insertion of Infusion Device into Superior Vena Cava, Percutaneous Approach (ICD-10-PCS; principal; 2018-04-25)
PROC: B548ZZA Ultrasonography of Superior Vena Cava, Guidance (ICD-10-PCS; 2018-04-25)
PROC: 0J9C0ZZ Drainage of Pelvic Region Subcutaneous Tissue and Fascia, Open Approach (ICD-10-PCS; 2018-04-26)
PROC: 0JBC0ZZ Excision of Pelvic Region Subcutaneous Tissue and Fascia, Open Approach (ICD-10-PCS; 2018-04-26)
PROC: 0W3J0ZZ Control Bleeding in Pelvic Cavity, Open Approach (ICD-10-PCS; 2018-04-26)
PROC: 0DN80ZZ Release Small Intestine, Open Approach (ICD-10-PCS; 2018-05-03)
PROC: 0DB80ZZ Excision of Small Intestine, Open Approach (ICD-10-PCS; 2018-05-03)
PROC: 0DBF0ZZ Excision of Right Large Intestine, Open Approach (ICD-10-PCS; 2018-05-03)
PROC: 0D9F8ZZ Drainage of Right Large Intestine, Via Natural or Artificial Opening Endoscopic (ICD-10-PCS; 2018-05-03)
PROC: 0DJD8ZZ Inspection of Lower Intestinal Tract, Via Natural or Artificial Opening Endoscopic (ICD-10-PCS; 2018-05-03)
PROC: 0W3J0ZZ Control Bleeding in Pelvic Cavity, Open Approach (ICD-10-PCS; 2018-05-06)
PROC: 0JBC0ZZ Excision of Pelvic Region Subcutaneous Tissue and Fascia, Open Approach (ICD-10-PCS; 2018-05-06)
DX: A41.9 Sepsis, unspecified organism (principal); R65.21 Severe sepsis with septic shock; E43 Unspecified severe protein-calorie malnutrition; J15.9 Unspecified bacterial pneumonia; K56.2 Volvulus; I26.99 Other pulmonary embolism without acute cor pulmonale; E87.1 Hypo-osmolality and hyponatremia; J96.11 Chronic respiratory failure with hypoxia; L02.214 Cutaneous abscess of groin; L03.311 Cellulitis of abdominal wall; L03.314 Cellulitis of groin; Z68.41 Body mass index [BMI] 40.0-44.9, adult; J44.0 Chronic obstructive pulmonary disease with (acute) lower respiratory infection; E66.9 Obesity, unspecified; E87.6 Hypokalemia; K63.89 Other specified diseases of intestine; R73.9 Hyperglycemia, unspecified; K66.0 Peritoneal adhesions (postprocedural) (postinfection); G47.33 Obstructive sleep apnea (adult) (pediatric); B95.4 Other streptococcus as the cause of diseases classified elsewhere; I11.9 Hypertensive heart disease without heart failure; I48.0 Paroxysmal atrial fibrillation; K52.9 Noninfective gastroenteritis and colitis, unspecified; N49.2 Inflammatory disorders of scrotum; N49.3 Fournier gangrene; N50.89 Other specified disorders of the male genital organs; Z82.49 Family history of ischemic heart disease and other diseases of the circulatory system; Z86.718 Personal history of other venous thrombosis and embolism; Z87.891 Personal history of nicotine dependence; Z90.49 Acquired absence of other specified parts of digestive tract; Z99.81 Dependence on supplemental oxygen; Z88.8 Allergy status to other drugs, medicaments and biological substances
CPT/HCPCS: 36415; 36569; 51702; 71045; 71275; 74018; 74177; 80048; 80053; 80202; 80307; 81001; 82040; 82533; 82565; 83036; 83540; 83550; 83605; 83735; 83880; 84100; 84484; 85014; 85018; 85025; 85049; 85379; 85520; 85610; 85651; 86140; 87040; 87070; 87075; 87081; 87086; 87205; 87324; 88307; 93005; 93306; 93970; 96361; 96365; 96375; 96376; G0378; J0295; J1100; J1170; J1650; J2185; J2250; J2405; J2543; J2550; J2704; J2710; J3010; J3370; J3475; J3480; Q9967; C9113; J0330; J1652; J1940; J2765; J3490; J7030; J7040; J7050